=== PATIENT | female | born 1960 | race Caucasian/White ===

== ENCOUNTER → 2022-09-19 16:02 | Outpatient (CLI) | payer OTHER, SELFPAY ==
--- NOTE | ~2022-09-19 | XR_ITS ---
XR hip RT min 2V 09/19/2022 16:17 Indication: Inflammatory arthritis Procedure: 2 views right hip Comparison: No prior studies for comparison. Findings: No fracture, subluxation or dislocation. No significant joint space narrowing. No erosive c hanges. No soft tissue abnormality. No foreign bodies. Impression: 1: No significant bone or joint abnormality. Reviewed, dictated and finalized at location [] Impression: 1: No significant bone or joint abnormality.
== END ==
PROVIDERS: PCP Internal Medicine; Visit Provider Internal Medicine
DX: M06.4 Inflammatory polyarthropathy (principal); M25.551 Pain in right hip
CPT/HCPCS: 73502

== ENCOUNTER 2023-02-24 10:29 | Emergency (ER) | payer OTHER, SELFPAY ==
[2023-02-24 10:40] VITALS: BP 115/80; PULSE 72; RESP 16; TEMP 36.6; O2SAT 100
--- NOTE | 2023-02-24 10:45 | ED.URI ---
HPI - URI/Sore Throat General Chief Complaint: Upper Respiratory Infection Stated Complaint: HEAD/CHEST COLD/SORE THROAT Time Seen by Provider: 02/24/23 10:46 Source: patient and RN notes reviewed Mode of arrival: ambulatory Limitations: no limitations History of Present Illness HPI Narrative: 62-year-old female presented for complaint of sinus congestion and drainage, sore throat, and headache. onset 1 week. Woke this morning and it ?moved to the chest. ? endorses occasional productive cough. Denies shortness of breath, wheezing, nausea vomiting, fevers or chills. She used Sudafed and nasal irrigation. Denies sick contacts. Tested negative for COVID at the onset of symptoms. MD elicited complaint: cough Related Data Home Medications Medication Instructions Recorded Confirmed alprazolam 0.5 mg tablet (Xanax) 0.5 mg PO TID 05/01/22 02/24/23 cholecalciferol (vitamin D3) 50 50 mcg PO DAILY 06/15/22 02/24/23 mcg (2,000 unit) capsule ferrous sulfate 325 mg (65 mg 325 mg PO DAILY 06/15/22 02/24/23 iron) tablet folic acid 400 mcg tablet 0.4 mg PO DAILY 06/15/22 02/24/23 mecobalamin (vitamin B12) 1,000 1,000 mcg PO DAILY 06/15/22 02/24/23 mcg chewable tablet omeprazole 20 mg capsule,delayed 20 mg PO DAILY 06/15/22 02/24/23 release spironolactone 50 mg tablet 50 mg PO DAILY 06/15/22 02/24/23 Allergies Allergy/AdvReac Type Severity Reaction Status Date / Time doxycycline AdvReac Severe edema Uncoded 02/24/23 10:45 Review of Systems Review of Systems: CONSTITUTIONAL: Denies malaise, chills, sweats, fever EYES: Denies visual changes, redness, or discharge ENT: Reports rhinorrhea, congestion, sinus pain, denies otalgia, sore throat CARDIOVASCULAR: Denies chest pain, palpitations, edema RESPIRATORY: Reports cough, post nasal drainage. Denies dyspnea GASTROINTESTINAL: Denies abdominal pain, nausea, vomiting, diarrhea SKIN: Denies rash or itching MUSCULOSKELETAL: Denies myalgia NEUROLOGIC: Reports headache PMFSH Past Medical History Medical History Anxiety Asthma Hyperlipidemia Hypothyroidism (acquired) Palindromic rheumatism Surgical History Surgical History H/O shoulder surgery History of foot surgery bilateral plantar fasciitis and heel spur S/P cervical spinal fusion x2 Family History Family History Father Cancer Diabetes mellitus Mother Diabetes mellitus Heart disease Other Family history of cardiovascular disease Social History Social History Years smoked: 10 Smoking status: Current some day smoker Tobacco type: e-cigarettes/vaping Alcohol intake: current Substance use: never Lack of Transportation: No Lack of Food: Never True Current Housing: I Have Housing Concerned About Future Housing: No Difficulty Paying Gas/Electric Bills: No Difficulty Paying for Meds: No Currently Unemployed: No Education: Don't Know Difficulty w/ Childcare or Family Care: No Living arrangements: with family Occupation/Education: occupation Additional occupation/education comments: [employer] Spiritual care concerns: No Agree to blood products: Yes Exam Narrative: GENERAL: Mildly ill-appearing, nontoxic no acute distress. HEAD: Normocephalic EYES: PERRLA, conjunctivae clear ENT: Mucous membranes moist. Nasal congestion. TM pearly vuong with dull light reflex bilaterally; no tragal tenderness. Oropharynx mildly erythematous without lesions or exudate, no drooling, no hoarseness, no trismus, uvula midline. No tripod positioning, muffled voice, soft palate or pharyngeal wall bulging NECK: Supple. No lymphadenopathy CHEST: Clear to auscultation, breath sounds equal. No wheezing, rhonchi, rales, or stridor. No respiratory
== END 2023-02-24 11:00 | disposition home or self-care (01) ==
PROVIDERS: Emergency Provider Nurse Practitioner Family; PCP Family Medicine
DX: J06.9 Acute upper respiratory infection, unspecified (principal); F17.290 Nicotine dependence, other tobacco product, uncomplicated; J45.909 Unspecified asthma, uncomplicated; E78.5 Hyperlipidemia, unspecified; E03.9 Hypothyroidism, unspecified; M12.30 Palindromic rheumatism, unspecified site; F41.9 Anxiety disorder, unspecified
CPT/HCPCS: 99213; G0463

== ENCOUNTER 2023-12-07 19:45 | Emergency (ER) | payer OTHER, SELFPAY ==
--- NOTE | 2023-12-07 19:49 | ED.BACK ---
HPI - Back Pain/Injury General Chief Complaint: Back Pain/Injury Stated Complaint: Lower back pain Time Seen by Provider: 12/07/23 20:15 Source: patient and RN notes reviewed Mode of arrival: ambulatory Limitations: no limitations History of Present Illness HPI Narrative: 63-year-old female presents concern for right lower back pain radiates to right leg she reports symptoms started this morning. Reports when she was getting out of bed she and stretching she felt a pull in her low back and since then has had pain. Reports walking relieves the pain. Reports sitting for long time or lying down makes the pain worse. She reports she took methocarbamol at home without relief. MD elicited complaint: back pain Related Data Home Medications Medication Instructions Recorded Confirmed cholecalciferol (vitamin D3) 50 50 mcg PO DAILY 06/15/22 08/27/23 mcg (2,000 unit) capsule ferrous sulfate 325 mg (65 mg 325 mg PO DAILY 06/15/22 08/27/23 iron) tablet folic acid 400 mcg tablet 0.4 mg PO DAILY 06/15/22 08/27/23 mecobalamin (vitamin B12) 1,000 1,000 mcg PO DAILY 06/15/22 08/27/23 mcg chewable tablet omeprazole 20 mg capsule,delayed 20 mg PO DAILY 06/15/22 08/27/23 release spironolactone 50 mg tablet 50 mg PO DAILY 06/15/22 08/27/23 alprazolam 0.5 mg tablet (Xanax) 0.5 mg PO DAILY 04/24/23 08/27/23 Allergies Allergy/AdvReac Type Severity Reaction Status Date / Time doxycycline AdvReac Severe edema Uncoded 08/24/23 14:45 Review of Systems Review of Systems: CONSTITUTIONAL: Denies malaise, chills, sweats, or fever. CARDIOVASCULAR: Denies chest pain, palpitations, or edema. RESPIRATORY: Denies cough or dyspnea. GASTROINTESTINAL: Denies abdominal pain, nausea, vomiting, diarrhea, loss of bowel function GENITOURINARY: Denies dysuria, hematuria, frequency, loss of bladder function. SKIN: Denies rash or itching. MUSCULOSKELETAL: Reports right low back pain NEUROLOGIC: Denies numbness, weakness, or headache. All systems reviewed & are unremarkable except as noted in HPI and below PMFSH Past Medical History Medical History Anxiety Asthma Hyperlipidemia Hypothyroidism (acquired) Palindromic rheumatism Surgical History Surgical History H/O shoulder surgery History of foot surgery bilateral plantar fasciitis and heel spur S/P cervical spinal fusion x2 Family History Family History Father Cancer Diabetes mellitus Mother Diabetes mellitus Heart disease Other Family history of cardiovascular disease Social History Social History Years smoked: 10 Smoking status: Current some day smoker Tobacco type: e-cigarettes/vaping Alcohol intake: current Substance use: never Lack of Transportation: No Lack of Food: Never True Current Housing: I Have Housing Concerned About Future Housing: No Difficulty Paying Gas/Electric Bills: No Difficulty Paying for Meds: No Currently Unemployed: No Education: Don't Know Difficulty w/ Childcare or Family Care: No Living arrangements: with family Occupation/Education: occupation Additional occupation/education comments: [employer] Spiritual care concerns: No Agree to blood products: Yes Comments At time of signature, agree with nursing past medical, surgical, social and family history. There is no relevant family history pertinent to the presenting complaint Exam Narrative: GENERAL: Well-appearing, well-nourished, and in no acute distress. HEAD: Normocephalic, atraumatic. EYES: PERRLA and EOMI. NECK: Supple. No lymphadenopathy. CHEST: Clear to auscultation. No respiratory distress. HEART: Regular rate and rhythm. Distal pulses palpable and equal, cap refill <3 seconds ABDOMEN
[2023-12-07 19:54] VITALS: BP 103/67; PULSE 64; RESP 16; TEMP 36.7; O2SAT 100
== END 2023-12-07 20:29 | disposition home or self-care (01) ==
PROVIDERS: Emergency Provider Nurse Practitioner; PCP Family Medicine
DX: M54.50 Low back pain, unspecified (principal); F17.290 Nicotine dependence, other tobacco product, uncomplicated; J45.909 Unspecified asthma, uncomplicated; E78.5 Hyperlipidemia, unspecified; E03.9 Hypothyroidism, unspecified; F41.9 Anxiety disorder, unspecified; M12.30 Palindromic rheumatism, unspecified site
CPT/HCPCS: 99213; G0463

== ENCOUNTER 2024-05-28 00:37 | Day surgery (SDC) | payer OTHER, SELFPAY ==
[2024-05-15 11:39] VITALS: BMI 24.2
--- OUTSIDE RECORDS SUMMARY | 2024-05-28 00:40 | XMS_ITS | Clinical Summary ---
Author Organization [facility] Address [address] [place] [id number] Care Team Providers Care Owner/Photographer Name Role Phone None, Provider MD Primary Care Provider Unavaila ble Allergies Active Allergy Reactions Criticality Noted Date Comments Doxycycline Anaphylaxis High 03/26/2020 Medications spironolactone 100 MG tabletIndicatio ns:for acne 50 mg. Indications: for acne Active rosuvastatin 10 MG tablet rosuvastatin 10 mg tablet TK 1 T PO HS Active levothyroxine 75 MCG tablet levothyroxine 75 mcg tablet TK 1 T PO D Active HYDROcodone-jacqui taminophen 5-325 MG tabletIndicatio ns:uses about once a week Take 1 tablet by mouth every 6 (six) hours as needed. Indications: uses about once a week 0 Active BREO ELLIPTA 100-25 MCG/INH inhaler INHALE 1 PUFF PO QD 0 Active escitalopram 20 MG tablet TK 1 T PO QD IN THE MORNING 0 Active Casanthranol-Do cusate Sodium (LAXATIVE-STOOL SOFTNER OR) Active Cyanocobalamin (VITAMIN B 12 OR) Active Turmeric (QC TUMERIC COMPLEX OR) Active omeprazole 20 MG capsule Take 20 mg by mouth daily. Active medroxyPROGESTE Kings 2.5 MG tablet Take 2.5 mg by mouth daily. Estrogen patch, progesterone first 10 days of month every 3 months Active Na sulfate-K sulfate-Mg sulfate (SUPREP BOWEL PREP KIT) 17.5-3.13-1.6 GM/177ML SolutionIndicat ions:Colon cancer screening,Encou nter for colonoscopy due to history of adenomatous colonic polyps Take 177 mLs by mouth every 12 (twelve) hours. Take as directed by instruction sheet. 354 mL Active hydroxychloroqu ine 200 MG tablet Take 200 mg by mouth 2 (two) times daily. Active Active Problems Problem Noted Date Diagnosed Date Colon cancer screening 03/01/2021 Overview (03/01/2021): Added automatically from request for surgery [id number] Constipation, unspecified 03/29/2020 Overview (03/29/2020): Added automatically from request for surgery [id number] History of colon polyps 03/29/2020 Overview (03/29/2020): Added automatically from request for surgery [id number] Anemia 03/29/2020 Overview (03/29/2020): Added automatically from request for surgery [id number] Family History Medical History Relation Comments Breast Cancer Neg Hx Relation Status Comments Father Mother Social History Tobacco Use Types Packs/Day Years Used Date Smoking Tobacco: Former Smokeless Tobacco: Never Alcohol Use Standard Drinks/Week Comments Not Currently 0 (1 standard drink = 0.6 oz pur e alcohol) PHQ-2 Answer Date Recorded PHQ-2 Score - If the patient scores above 3, please move on to questions 3-9 0 02/24/2021 Comments No Sex and Gender Information Value Date Recorded Sex Assigned at Not on file Legal Sex Female 7:32 PM CDT Gender Identity Not on file Sexual Orientation Not on file Last Filed Vital Signs Vital Sign Reading Time Taken Comments Blood Pressure 121/74 04/06/2021 9:49 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 Pulse 60 04/06/2021 9:49 AM SENIOR 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 Temperature 36.1 C (96.9 F) 04/06/2021 9:20 AM SENIOR 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 Respiratory Rate 20 04/06/2021 9:49 AM SENIOR 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 Oxygen Saturation 98% 04/06/2021 9:49 AM SENIOR 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 Inhaled Oxygen Concentration - - Weight 72.6 kg (160 lb) 03/22/2021 1:22 PM SENIOR 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 Height 167.6 cm (5' 6 ) 03/22/2021 1:22 PM SENIOR 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 Body Mass Index 25.82 03/22/2021 1:22 PM SENIOR 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 Plan of Treatment Health Maintenance Due Date Last Done Comments Cervical Cancer Screening Pa p Smear (Age 30 to 64) Every 3 Years 1959 Annual Physical 11/07/1962 Hepatitis C 11/07/1977 DTaP, Tdap and Td Vaccines ( 1 - Tdap) 11/07/1978 Cervical Cancer Screening Pa p with HPV Testing (Age 30 to 64) Every 5 Years 11/07/1989 Cervical Cancer Screening wi th HPV 11/07/1989 Zoster Vaccines (2 of 2) 01/08/2021 11/13/2020 COVID-19 Vaccine (3 - 2023-2 5 season) 2023 06/21/2020, 05/29/2020 Influenza Adult (#1) 2024 Mammogram Screening 02/07/2024 02/06/2022 Colorectal Cancer Screening Colonoscopy (10 Years) 04/06/2031 04/06/2021, 04/07/2020, 11/06/2005 RSV Immunization or 60+ Years (1 - 1-dose 75+ series) 11/07/2034 Meningococcal B Vaccine Aged Out No l onger eligible based on patient's age to complete this topic Meningococcal Vaccine Aged Out No oksana blaise eligible based on patient's age to complete this topic Pneumococcal Vaccine: Pediatrics (0 to 5 Years) and At-Risk Patients (6 to 64 Years) Aged Out No longer eligible b ased on patient's age to complete this topic RSV Immunizations Under 20 Months Aged Out No longer eligible b ased on patient's age to complete this topic Procedures Procedure Name Priority Date/Time Associated Diagnosis Comments MG SCREENING W SIMON SANJU DIGI Routine 02/06/2022 3:37 PM CDT Encounter for screening mammogram for malignant neoplasm of breast COLONOSCOPY GENERIC (SCAN ORDER) 11/06/2005 from Last 3 Months or Most Recently Relevant to Health Maintenance Results * MG SCREENING W SIMON SANJU DIGI (02/06/2022 3:37 PM CDT) Anatomical Region Laterality Modality Breast Bilateral Mammography 02/06/2022 4:42 PM CDT Impressions 02/06/2022 4:52 PM CDT IMPRESSION: 1. No mammographic evidence of malignancy. 2. Assessment: ACR BI-RADS 2 - BENIGN FINDING(S) 3 .Routine Screening Bilateral MQSA BI-RADS Categories: Category 0 - needs additional imaging evaluation. Category 1 - negative. Category 2 - benign findings. Category 3 - probably benign findings, but short interval follow-up is recommended. Category 4 - suspicious abnormality and biopsy should be considered though the lesion may well be benign. Category 5 - highly suggestive of malignancy and appropriate action should be taken. Category 6 - known biopsy-proven malignancy A) A negative report should not delay a biopsy if a dominant or clinically suspicious mass is present. B) Adenosis and dense breasts may obscure an underlying neoplasm. C) Study interpreted with computer aided detection. Ordered By: KAITY HERNANDEZ Interpreted By: Trip Seth, 02/06/2022 4:42 PM Narrative 02/06/2022 4:52 PM CDT IMAGING STUDIES: Bilateral screening mammograms with computer-aided detection with 2-D and 3-D imaging. Tomosynthesis. DATE: 02/06/2022 2:41 PM HISTORY: screening . COMPARISON: 09/07/2008. 01/09/2013. TISSUE TYPE: The breast tissue is extremely dense, which lowers the sensitivity of mammography. FINDINGS: 1. Bilateral screening mammograms with computer detection with 2-D and 3-D imaging. Tomosynthesis. Dense fibroglandular tissue pattern is present. This does limit sensitivity of mammography. Benign nodularity. Benign calcifications. 2. No malignant microcalfcifications, new dominant masses, or architectural distortion. 3. No skin thickening or nipple retraction. Axillary regions are within normal limits. Kaity Hernandez MD MAMMO Final Resul t * COLONOSCOPY GENERIC (11/06/2005) 11/06/2005 Narrative 11/06/2005 Ordered by an unspecified provider. us Documents Scanned SCANNING Final Result from Last 3 Months or Most Recently Relevant to Health Maintenance Insurance [employer] Care Teams Owner/Photographer Relationship Specialty Start Date End Date None, Provider, PCP - General UNKNOWN PHYSICIAN SPECIALTY 02/04/24
--- OUTSIDE RECORDS SUMMARY | 2024-05-28 00:40 | XMS_ITS | Patient Health Summary ---
Author Organization [facility] Address [address] [place] [address] Care Team Providers Care Teletypewriter Operator Name Role Phone Akash Soares MD Primary Care Provider [phone] Note from [facility],non-owned Affiliates and Associated Physician Practices is amultiple site organization consisting of ambulatory clinics and hospital sitesin [place], [place], [place] and [place]. This disclosure is being madepursuant to the Care Everywhere program and may not contain all information available regarding this patient. Last updated 17.[facility] Allergies * Diclofenac Epolamine(Rash) -Medium Criticality * Doxycycline(Anaphylaxis,Nausea and/or Vomiting,Rash,Swelling) -High Criticality * Molds & Smuts(Unknown) Medications * Be aware that medications may not be up to date on this document. Alwaysverify current medications with the patient. * ALPRAZolam (Xanax) 0.25 MG tablet(Started 08/31/2020) alprazolam 0.25 mg tablet TAKE 1 TABLET BY MOUTH THREE TIMES DAILY NEEDED * escitalopram (Lexapro) 20 MG tablet(Started 09/13/2020) * Lyllana 0.025 MG/24HR patch(Started 12/23/2021) APPLY 1 PATCH TOPICALLY TO THE SKIN 2 TIMES A WEEK * Ferrous Sulfate (Iron) 90 (18 Fe) MG * omeprazole (PriLOSEC) 20 MG capsule Take 1 (one) capsule by mouth once daily * rosuvastatin (Crestor) 10 MG tablet(Started 01/25/2022) Take 1 (one) tablet by mouth at bedtime * HYDROcodone-acetaminophen ([place]) 5-325 MG tablet(Started 11/30/2021) TAKE 1 TABLET BY MOUTH EVERY 6 TO 8 HOURS NEEDED * albuterol HFA (Proventil; Ventolin; Proair) 108 (90 Base) MCG/ACT inhaler * Cyanocobalamin (VITAMIN B-12 PO) * VITAMIN D PO * methotrexate 2.5 MG tablet(Started 05/09/2022) * folic acid (Folvite) 1 MG tablet(Started 05/09/2022) * HYDROXYCHLOROQUINE SULFATE PO Take by mouth once daily * tretinoin (Retin-A) 0.1 % cream(Started 01/02/2023) tretinoin 0.1 % topical cream APPLY to forearms AT AT BEDTIME 5 refills by 01/02/2024 * valACYclovir (Valtrex) 1 GM tablet(Started 04/24/2023) Take 2 (two) tablets by mouth 2 times daily * budesonide-formoterol (Symbicort) 80-4.5 MCG/ACT inhaler(Started 07/25/2023) INHALE 2 PUFFS BY MOUTH EVERY 12 HOURS * hydroxychloroquine (Plaquenil) 200 MG tablet(Started 08/02/2023) * HVAC TECH Thyroid 30 MG tablet(Started 06/14/2023) Take 1 (one) tablet by mouth every morning * triamcinolone acetonide (Kenalog) 0.1 % cream(Started 10/07/2022) APPLY TOPICALLY TO THE AFFECTED AREA 1 TO 2 TIMES DAILY NEEDED. AVOID FACE AND GROIN * azelaic acid (Finacea) 15 % gel(Started 08/07/2023) Apply to affected area on the face daily. 30 days supply. 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 Anemia 03/29/2020 History of colon polyps 03/29/2020 Recurrent oral ulcers 05/05/2014 Arthralgia 03/17/2014 Myalgia and myositis 03/17/2014 Malaise 03/17/2014 Screening-pulmonary TB 03/17/2014 Tick bite 03/17/2014 Pain of foot 07/01/2013 Resolved Problems Problem Noted Date Diagnosed Date Resolved Date Constipation 03/17/2014 06/20/2022 Social History Tobacco Use Types Packs/Day Years Used Date Smoking Tobacco: Former Cigarettes Q uit: 2010 Passive Smoke Exposure: Never Smokeless Tobacco: Never Tobacco Cessation:Counseling Given: Not Answered PHQ-2 Answer Date Recorded PHQ2 TOTAL SCORE 0 08/10/2022 Sex and Gender Information Value Date Recorded Sex Assigned at Not on file Gender Identity Not on file Sexual Orientation Not on file Last Filed Vital Signs Vital Sign Reading Time Taken Comments Blood Pressure 123/82 12/07/2022 2:04 PM CDT Pulse 77 12/07/2022 2:04 PM CDT Temperature 37 C (98.6 F) 12/07/2022 2:04 PM CDT Respiratory Rate 18 12/07/2022 2:04 PM CDT Oxygen Saturation 99% 12/07/2022 2:04 PM CDT Inhaled Oxygen Concentration - - Weight 73.5 kg (162 lb) 12/07/2022 2:04 PM CDT Height 167.6 cm (5' 6 ) 12/07/2022 2:04 PM CDT Body Mass Index 26.15 12/07/2022 2:04 PM CDT Procedures * PT PTT PANEL(Performed 08/10/2022) Performed for Easy bruising * CBC W AUTO DIFFERENTIAL ([facility])(Performed 08/10/2022) Performed for Easy bruising * PORPHYRINS TOTAL PLASMA(Performed 06/09/2022) * PORPHYRINS URINE TIMED FRACTIONATION(Performed 06/09/2022) Performed for Ecchymoses, spontaneous, Milia * COMPLEMENT C4(Performed 05/09/2022) Performed for Easy bruising, Chronic inflammatory arthritis, Mixed hyperlipidemia, Anxiety with depression * COMPREHENSIVE METABOLIC PANEL(Performed 05/09/2022) Performed for Easy bruising, Chronic inflammatory arthritis, Mixed hyperlipidemia, Anxiety with depression * PT PTT PANEL(Performed 05/09/2022) Performed for Easy bruising * CBC W AUTO DIFFERENTIAL ([facility])(Performed 05/09/2022) Performed for Easy bruising * VITAMIN C(Performed 02/03/2022) Performed for Easy bruising, Chronic inflammatory arthritis, Mixed hyperlipidemia * VITAMIN K1(Performed 02/03/2022) Performed for Easy bruising, Chronic inflammatory arthritis, Mixed hyperlipidemia * THROMBIN TIME(Performed 02/02/2022) Performed for Easy bruising, Chronic inflammatory arthritis, Mixed hyperlipidemia * VON WILLEBRAND EVALUATION PANEL(Performed 02/02/2022) Performed for Easy bruising, Chronic inflammatory arthritis, Mixed hyperlipidemia * HEMATOPATHOLOGY CONSULT(Performed 02/02/2022) Performed for Easy bruising, Chronic inflammatory arthritis * REF LAB-SPECIMEN STATUS REPORT(Performed 02/02/2022) * COAGULATION STUDIES INTERPRETATION(Performed 02/02/2022) Performed for Easy bruising, Chronic inflammatory arthritis, Mixed hyperlipidemia * HEPATITIS SCREEN ACUTE ([facility])(Performed 02/02/2022) Performed for Easy bruising, Chronic inflammatory arthritis * VITAMIN B12 FOLATE PANEL(Performed 02/02/2022) Performed for Easy bruising, Chronic inflammatory arthritis * CRYOGLOBULIN SCREEN W/ REFLEX(Performed 02/02/2022) Performed for Easy bruising, Chronic inflammatory arthritis * IMMUNOGLOBULINS IGG/IGM/IGA PANEL(Performed 02/02/2022) Performed for Easy bruising, Chronic inflammatory arthritis * ANCA VASCULITIS PANEL(Performed 02/02/2022) Performed for Easy bruising, Chronic inflammatory arthritis * MARINA BLOOD SCREEN W/REFLEX TITER(Performed 02/02/2022) Performed for Easy bruising, Chronic inflammatory arthritis * RHEUMATOID FACTOR BLOOD QUANTITATIVE(Performed 02/02/2022) Performed for Easy bruising, Chronic inflammatory arthritis * COPPER BLOOD(Performed 02/02/2022) Performed for Easy bruising, Chronic inflammatory arthritis * C-REACTIVE PROTEIN(Performed 02/02/2022) Performed for Easy bruising, Chronic inflammatory arthritis * COMPREHENSIVE METABOLIC PANEL(Performed 02/02/2022) Performed for Easy bruising, Chronic inflammatory arthritis * TSH(Performed 02/02/2022) Performed for Easy bruising, Chronic inflammatory arthritis * COAGULATION PANEL W D-DIMER(Performed 02/02/2022) Performed for Easy bruising, Chronic inflammatory arthritis * COMPLEMENT C3(Performed 02/02/2022) Performed for Easy bruising, Chronic inflammatory arthritis * ERYTHROCYTE SEDIMENTATION RATE(Performed 02/02/2022) Performed for Easy bruising, Chronic inflammatory arthritis * PLATELET FUNCTION SCREEN PANEL(Performed 02/02/2022) Performed for Easy bruising, Chronic inflammatory arthritis * CBC W AUTO DIFFERENTIAL ([facility])(Performed 02/02/2022) Performed for Easy bruising, Chronic inflammatory arthritis * URINALYSIS MICROSCOPIC ONLY REFLEXED(Performed 03/17/2014) * EHRLICHIA CHAFFEENSIS AB IGG/IGM PANEL(Performed 03/17/2014) * RHEUMATOID FACTOR BLOOD QUANTITATIVE(Performed 03/17/2014) * CYCLIC CITRULLINATED PEPTIDE([facility]) AB IGG(Performed 03/17/2014) * PM/SCL-100 ANTIBODY IGG(Performed 03/17/2014) * COMPLEMENT TOTAL(Performed 03/17/2014) * COMPLEMENT C4(Performed 03/17/2014) * COMPLEMENT C3(Performed 03/17/2014) * SS-A/SS-B (SJOGREN'S) ANTIBODY PANEL(Performed 03/17/2014) * SACCHAROMYCES ANTIBODY (ASCA) IGG/IGA PANEL(Performed 03/17/2014) * CUSTOMER RELATIONS SPECIALIST ANTIBODY(Performed 03/17/2014) * MPO + PR3 W/ REFLEX ANCA(Performed 03/17/2014) * MARINA BLOOD SCREEN W/REFLEX TITER(Performed 03/17/2014) * LYME DISEASE IGG/IGM PANEL WB/IMMUNOBLOT(Performed 03/17/2014) * HEPATITIS SCREEN ACUTE(Performed 03/17/2014) * LDH BLOOD(Performed 03/17/2014) * QUANTIFERON TB-GOLD(Performed 03/17/2014) * ERYTHROCYTE SEDIMENTATION RATE(Performed 03/17/2014) * TSH HI LOW REFLEX FREE T4(Performed 03/17/2014) * URINALYSIS W/MICROSCOPIC REFLEX TO CULTURE(Performed 03/17/2014) * VITAMIN D 25-HYDROXY(Performed 03/17/2014) * CK BLOOD(Performed 03/17/2014) * C-REACTIVE PROTEIN(Performed 03/17/2014) * COMPREHENSIVE METABOLIC PANEL(Performed 03/17/2014) * CELIAC DISEASE COMPREHENSIVE(Performed 03/17/2014) * CBC W AUTO DIFFERENTIAL(Performed 03/17/2014) * ALDOLASE(Performed 03/17/2014) * QUANTIFERON TB-GOLD (CLIENT INCUBATED)(Performed 03/17/2014) * XR PELVIS W BILAT HIP 2VW(Performed 03/17/2014) * XR KNEE LEFT 3VW(Performed 03/17/2014) * XR KNEE RIGHT 3VW(Performed 03/17/2014) Results * PT PTT PANEL (08/10/2022 1:39 PM CDT) Only the most recent of2 resultswithin the time period is included. INR 0.9 0.9 - 1.2 [facility] ACCOUNT BILL Comment: Reference interval is for non-anticoagulated patients. . Suggested INR therapeutic range for Vitamin K antagonist therapy: Standard Dose (moderate intensity therapeutic range): 2.0 - 3.0 Higher intensity therapeutic range 2.5 - 3.5 PT 9.9 9.1 - 12.0 sec [facility] ACCOUNT BILL PTT 27 24 - 33 sec [facility] ACCOUNT BILL Comment: This test has not been validated for monitoring unfractionated heparin therapy. aPTT-based therapeutic ranges for unfractionated heparin therapy have not been established. For general guidelines on Heparin monitoring, refer to the [facility] Directory of Services. Blood BLOOD SPECIMEN / Unknown 08/10/2022 1:39 PM CDT 08/10/2022 Narrative Resulting Agency Comment Lab Testing performed at: [facility] [address] [facility] [phone] Janusz Bravo MD LAB - COAGULATION OR DERABLES [facility] ACCOUNT BILL [address] [place] [address] * (ABNORMAL) CBC W AUTO DIFFERENTIAL ([facility]) (08/10/2022 12:45 PM CDT) Only the most recent of3 resultswithin the time period is included. Pathologist [facility] WBC 12.1(H) 4.4 - 10.7 x10E9/L 08/10/2022 12:50 PM CDT [facility] Neutrophils % 80.3(H) 44.0 - 73.0 % 08/10/2022 12:50 PM CDT [facility] Lymphocytes % 11.0(L) 20.0 - 43.0 % 08/10/2022 12:50 PM CDT [facility] Monocytes % 7.3 5.0 - 13.0 % 08/10/2022 12:50 PM CDT [facility] Eosinophils % 0.2 0.0 - 6.0 % 08/10/2022 12:50 PM CDT [facility] Basophils % 0.6 0.0 - 2.0 % 08/10/2022 12:50 PM CDT [facility] Immature Granulocytes 0.6 <=1 % 08/10/2022 12:50 PM CDT [facility] Neutrophil Absolute 9.72(H) 2.01 - 7.14 x10E9/L 08/10/2022 12:50 PM CDT [facility] Lymphocytes Absolute 1.33 1.07 - 3.94 x10E9/L 08/10/2022 12:50 PM CDT [facility] Monocytes Absolute 0.88 0.26 - 1.07 x10E9/L 08/10/2022 12:50 PM CDT [facility] Eosinophils Absolute 0.02 0 - 0.47 x10E9/L 08/10/2022 12:50 PM CDT [facility] Basophils Absolute 0.07 0 - 0.08 x10E9/L 08/10/2022 12:50 PM CDT [facility] RBC 4.02 3.80 - 5.20 x10E12/L 08/10/2022 12:50 PM CDT [facility] Hemoglobin 13.2 12.0 - 15.6 gm/dL 08/10/2022 12:50 PM CDT [facility] Hematocrit 40.2 35.9 - 45.5 % 08/10/2022 12:50 PM CDT [facility] MCV 100.0(H) 80.7 - 98.3 fl 08/10/2022 12:50 PM CDT [facility] MCH 32.8 26.7 - 34.0 pg 08/10/2022 12:50 PM CDT [facility] MCHC 32.8 30.8 - 35.9 gm/dL 08/10/2022 12:50 PM CDT [facility] RDW-CV 14.6 12.1 - 14.9 % 08/10/2022 12:50 PM CDT [facility] Platelet Count 283 153 - 416 x10E9/L 08/10/2022 12:50 PM CDT [facility] MPV 9.1(L) 9.4 - 12.9 fl 08/10/2022 12:50 PM CDT [facility] NRBC 0.0 /100 WBC 08/10/2022 12:50 PM CDT [facility] Blood BLOOD SPECIMEN / Unknown 08/10/2022 12:45 PM CDT 08/10/2022 12:45 PM CDT Janusz Bravo MD LAB - HEMATOLOGY ORD ERABLES Performing Organization Address City/[facility]/ZIP Co de Phone Number [facility] [address] * PORPHYRINS TOTAL PLASMA (06/09/2022 7:54 AM MANUFACTURING ENGINEERING DIRECTOR) [facility] Porphyrins Total <0.1 0.0 - 1.0 ug/dL [facility] INSURANCE BILL Comment: Reference Range 0.0 - 1.0 ug/dL = normal > 1.0 ug/dL = elevated The performance characteristics of the listed assay was validated by [facility]. The [place] FDA has not approved or cleared this test. The results of this assay can be used for clinical diagnosis without FDA approval. [facility] is a CLIA certified, CAP accredited laboratory for performing high complexity assays such as this one. Testing Performed at: [facility] [place] [address] 06/09/2022 7:54 AM MANUFACTURING ENGINEERING DIRECTOR 06/09/2022 Narrative Resulting Agency Comment Lab Testing performed at: [facility] [phone] Aura Lo MD LAB - CHEMISTRY OR DERABLES [facility] INSURANCE BILL [address] [place] [address] * PORPHYRINS URINE TIMED FRACTIONATION (06/09/2022 7:54 AM MANUFACTURING ENGINEERING DIRECTOR) Uroporphyrin 8 Undefined ug/L [facility] INSURANCE BILL Uroporphyrin 24 Hour Urine 6 0 - 24 ug/24 hr [facility] INSURANCE BILL Heptacarboxyl (7-CP) 4 Undefined ug/L [facility] INSURANCE BILL Heptacarboxyl (7-CP) Timed 3 0 - 4 ug/24 hr [facility] INSURANCE BILL Hexacarb (6-CP) <1 Undefined ug/L [facility] INSURANCE BILL Hexacarb(6-CP) 24 Hour 0 0 - 1 ug/24 hr [facility] INSURANCE BILL Pentacarboxyl (5-CP) <1 Undefined ug/L [facility] INSURANCE BILL Pentacarb(5-CP) 24 Hour 0 0 - 4 ug/24 hr [facility] INSURANCE BILL Coproporphyrin (CP) 9 Undefined ug/L [facility] INSURANCE BILL Coproporph (CP) I ug/24 Hour Urine 7 0 - 24 ug/24 hr [facility] INSURANCE BILL Coproporphyrin (CP) III ug/L 2 Undefined ug/L [facility] INSURANCE BILL Copropor CPIII ug/24 Hour Urine 2 0 - 74 ug/24 hr [facility] INSURANCE BILL Urine URINE SPECIMEN COLLECTION, 24 HOURS / Unknown 06/09/2022 7:54 AM MANUFACTURING ENGINEERING DIRECTOR 06/09/2022 Narrative Resulting Agency Comment Lab Testing performed at: [address] [phone] Aura Lo MD LAB - URINE CHEMIS TRY ORDERABLES [facility] INSURANCE BILL [address] [place] [address] * COMPLEMENT C4 (05/09/2022 2:26 PM MANUFACTURING ENGINEERING DIRECTOR) Only the most recent of2 resultswithin the time period is included. Complement C4 31 14 - 44 mg/dL [facility] ACCOUNT BILL Blood BLOOD SPECIMEN / Unknown 05/09/2022 2:26 PM MANUFACTURING ENGINEERING DIRECTOR 05/09/2022 Narrative Resulting Agency Comment Lab Testing performed at: [employer] [address] [place] [phone] Janusz Bravo MD LAB - SEROLOGY ORDER JAMIE [facility] ACCOUNT BILL [address] [place] [address] * (ABNORMAL) COMPREHENSIVE METABOLIC PANEL (05/09/2022 2:26 PM MANUFACTURING ENGINEERING DIRECTOR) Only the most recent of3 resultswithin the time period is included. Glucose 83 70 - 105 mg/dL [facility] ACCOUNT BILL BUN 14 9.8 - 20.1 mg/dL [facility] ACCOUNT BILL Creatinine 0.94 0.57 - 1.11 mg/dL [facility] ACCOUNT BILL eGFR by CKD-EPI 69(L) >=90 mL/min/1.7 3 m2 [facility] ACCOUNT BILL Sodium 141 136 - 145 mmol/L [facility] ACCOUNT BILL Potassium 4.3 3.5 - 5.1 mmol/L [facility] ACCOUNT BILL Chloride 107 98 - 107 mmol/L [facility] ACCOUNT BILL CO2 24 23 - 31 mmol/L [facility] ACCOUNT BILL Calcium 9.2 8.4 - 10.4 mg/dL [facility] ACCOUNT BILL Protein Total 6.3(L) 6.4 - 8.3 gm/dL [facility] ACCOUNT BILL Albumin 4.3 3.2 - 4.6 gm/dL [facility] ACCOUNT BILL Bilirubin Total 0.5 0.2 - 1.2 mg/dL [facility] ACCOUNT BILL Alkaline Phosphatase 84 40 - 150 U/L [facility] ACCOUNT BILL AST 28 5 - 34 U/L [facility] ACCOUNT BILL ALT 40 0 - 61 U/L [facility] ACCOUNT BILL Blood BLOOD SPECIMEN / Unknown 05/09/2022 2:26 PM MANUFACTURING ENGINEERING DIRECTOR 05/09/2022 Narrative Resulting Agency Comment Lab Testing performed at: [facility] [address] [facility] [phone] Janusz Bravo MD LAB - CHEMISTRY ALBA MARISCAL [facility] ACCOUNT BILL [address] [place] [address] * VITAMIN K1 (02/03/2022 7:58 AM CDT) Vitamin K1 0.28 0.10 - 2.20 ng/mL [facility] ACCOUNT BILL Comment:FASTING Blood BLOOD SPECIMEN / Unknown 02/03/2022 7:58 AM CDT 02/03/2022 Narrative [facility] ACCOUNT BILL - 02/09/2022 6:09 AM CDT Test(s) [id number] K1 was developed and its performance characteristics determined by [facility]. It has not been cleared or approved by the Food and Drug Administration. Resulting Agency Comment Lab Testing performed at: [facility] [address] [phone] Janusz Bravo MD LAB - CHEMISTRY ALBA MARISCAL Performing Organization Address [facility] de Phone Number [facility] ACCOUNT BILL [address] [place] [address] * VITAMIN C (02/03/2022 7:58 AM CDT) Vitamin C 0.5 0.4 - 2.0 mg/dL [facility] ACCOUNT BILL Comment: Vitamin C deficiency is generally defined as plasma or serum concentrations less than 0.2 mg/dL and levels between 0.2 and 0.4 mg/dL are considered low. FASTING Blood BLOOD SPECIMEN / Unknown 02/03/2022 7:58 AM CDT 02/03/2022 Narrative [facility] ACCOUNT BILL - 02/08/2022 8:12 AM CDT Test(s) [id number] C was developed and its performance characteristics determined by [facility]. It has not been cleared or approved by the Food and Drug Administration. Resulting Agency Comment Lab Testing performed at: [facility] [address] [phone] Janusz Bravo MD LAB - CHEMISTRY ALBA MARISCAL Performing Organization Address City/[facility] Co de Phone Number [facility] ACCOUNT BILL [address] [place] [address] * VON WILLEBRAND EVALUATION PANEL (02/02/2022 4:05 PM CDT) Factor VIII Activity 103 56 - 140 % [facility] ACCOUNT BILL von Willebrand Factor Antigen 200 50 - 200 % [facility] ACCOUNT BILL Comment: VWF may elevate in normal , in samples drawn from patients (particularly children) who are visibly stressed at the time of phlebotomy, as acute phase reactants, or in response to certain drug therapies such as DDAVP. These and other situations may increase levels compared to baseline values. For these reasons, it may be necessary to repeat testing to make a diagnosis of VWD. von Willebrand Factor Activity 105 50 - 200 % [facility] ACCOUNT BILL Blood BLOOD SPECIMEN / Unknown 02/02/2022 4:05 PM CDT 02/02/2022 Narrative [facility] ACCOUNT BILL - 02/06/2022 1:08 PM CDT Test(s) [id number] Willebrand Factor (vWF) Ag was developed and its performance characteristics determined by [facility]. It has not been cleared or approved by the Food and Drug Administration. Resulting Agency Comment Lab Testing performed at: [address] [phone] Janusz Bravo MD LAB - COAGULATION OR DERABLES Performing Organization Address [facility] de Phone Number [facility] ACCOUNT BILL [address] [place] [address] * THROMBIN TIME (02/02/2022 4:05 PM CDT) Thrombin Time 17.7 0.0 - 23.0 sec [facility] ACCOUNT BILL Blood BLOOD SPECIMEN / Unknown 02/02/2022 4:05 PM CDT 02/02/2022 Narrative [facility] ACCOUNT BILL - 02/06/2022 7:07 AM CDT Test(s) [id number]-xzp Willebrand Factor (vWF) Ag was developed and its performance characteristics determined by [facility]. It has not been cleared or approved by the Food and Drug Administration. Resulting Agency Comment Lab Testing performed at: [address] [phone] Janusz Bravo MD LAB - COAGULATION OR DERABLES Performing Organization Address [facility] Co de Phone Number [facility] ACCOUNT BILL [address] [place] [address] * HEPATITIS SCREEN ACUTE ([facility]) (02/02/2022 4:04 PM CDT) Hepatitis A Virus Antibody IgM Non Reactive Non Reactive [facility] ACCOUNT BILL Hepatitis B Virus Surface Antigen Non Reactive Non Reactive [facility] ACCOUNT BILL Hepatitis B Core Virus Antibody IgM Non Reactive Non Reactive [facility] ACCOUNT BILL Hepatitis C Antibody Non Reactive Non Reactive [facility] ACCOUNT BILL Comment: Non Reactive - Antibodies to Hepatitis C virus (HCV) were no t detected, result does not exclude early acute HCV infection. Blood BLOOD SPECIMEN / Unknown 02/02/2022 4:04 PM CDT 02/02/2022 Narrative Resulting Agency Comment Lab Testing performed at: [address] [phone] Janusz Bravo MD LAB - CHEMISTRY ALBA MARISCAL [facility] ACCOUNT BILL [address] [place] [address] * COAGULATION STUDIES INTERPRETATION (02/02/2022 4:04 PM CDT) Interpretation Note [facility] ACCOUNT BILL Comment: COAGULATION: VON WILLEBRAND FACTOR ASSESSMENT CURRENT RESULTS ASSESSMENT The VWF:Ag is normal. The VWF:RCo is normal. The FVIII is normal. VON WILLEBRAND FACTOR ASSESSMENT CURRENT RESULTS INTERPRETATION - These results are not consistent with a diagnosis of VWD according to the current NHLBI guideline. VON WILLEBRAND FACTOR ASSESSMENT - Results may be falsely elevated and possibly falsely normal as VWF and FVIII may increase in samples drawn from patients (particularly children) who are visibly stressed at the time of phlebotomy, as acute phase reactants, or in response to certain drug therapies such as desmopressin. Repeat testing may be necessary before excluding a diagnosis of VWD especially if the clinical suspicion is high for an underlying bleeding disorder. The setting for phlebotomy should be as calm as possible and patients should be encouraged to sit quietly prior to the blood draw. VON WILLEBRAND FACTOR ASSESSMENT DEFINITIONS - VWD - von Willebrand disease; VWF - von Willebrand factor; VWF:Ag - VWF antigen; VWF:RCo - VWF ristocetin cofactor activity; FVIII - factor VIII activity. FOREPART REDUCER: For questions regarding panel interpretation, please contact Malcolm Waite M.D. at [facility] at . DISCLAIMER These assessments and interpretations are provided as a convenience in support of the physician-patient relationship and are not intended to replace the physician's clinical judgment. They are derived from national guidelines in addition to other evidence and expert opinion. The clinician should consider this information within the context of clinical opinion and the individual patient. SEE GUIDANCE FOR VON WILLEBRAND FACTOR ASSESSMENT: (1) The National Heart, Lung and Blood [place]. The Diagnosis, Evaluation and Management of von Willebrand Disease. [place], MD: National Institutes of Health Publication 08-5832. 2007. Available at http://www.nhlbi.nih.gov/guidelines/vwd/. (2) Del WL et al. Am J Hematol. 2009; 84(6):366-370. (3) Dayana Wood et al. Haemophilia. 2004;10(3):199-217. (4) Tj TORRES et al. Haemophilia. 2004; 10(3):218-231. 02/02/2022 4:04 PM CDT 02/02/2022 Narrative [facility] ACCOUNT BILL - 02/06/2022 1:08 PM CDT Test(s) [id number]-[id number] Willebrand Factor (vWF) Ag was developed and its performance characteristics determined by [facility]. It has not been cleared or approved by the Food and Drug Administration. Resulting Agency Comment Lab Testing performed at: [facility] [address] [place] [address] [place] [phone] Janusz Bravo MD LAB - COAGULATION OR DERABLES [facility] ACCOUNT BILL [address] [place] [address] * (ABNORMAL) HEMATOPATHOLOGY CONSULT (02/02/2022 4:04 PM CDT) WBC Morph [facility] ACCOUNT BILL Comment: No morphologic abnormality was detected on the Roberts stained smear. RBC Morphology [facility] ACCOUNT BILL Comment:RBC morphology is no rmal. Platelets [facility] ACCOUNT BILL Comment:Platelet morphology appears normal. Comments/Recomme ndations [facility] ACCOUNT BILL Pathologist [facility] ACCOUNT BILL Comment: . Reviewed by: Jamie Watts MD, Pathologist WBC 6.5 3.4 - 10.8 x10E3/uL [facility] ACCOUNT BILL RBC 4.85 3.77 - 5.28 x10E6/uL [facility] ACCOUNT BILL Hemoglobin 14.8 11.1 - 15.9 g/dL [facility] ACCOUNT BILL Hematocrit 45.4 34.0 - 46.6 % [facility] ACCOUNT BILL MCV 94 79 - 97 fL [facility] ACCOUNT BILL MCH 30.5 26.6 - 33.0 pg [facility] ACCOUNT BILL MCHC 32.6 31.5 - 35.7 g/dL [facility] ACCOUNT BILL RDW 11.5(L) 11.7 - 15.4 % [facility] ACCOUNT BILL Platelet Count 364 150 - 450 x10E3/uL [facility] ACCOUNT BILL Granulocytes % 67 Not Estab. % [facility] ACCOUNT BILL Lymphocytes % 15 Not Estab. % [facility] ACCOUNT BILL Monocytes % 12 Not Estab. % [facility] ACCOUNT BILL Eosinophils % 5 Not Estab. % [facility] ACCOUNT BILL Basophils % 1 Not Estab. % [facility] ACCOUNT BILL Immature Cells NOT AVAILABLE [facility] ACC[facility] Comment:Result cannot be obt ained for this observation. Granulocytes Absolute 4.3 1.4 - 7.0 x10E3/uL [facility] ACCOUNT BILL Lymphocytes Absolute 1.0 0.7 - 3.1 x10E3/uL [facility] ACCOUNT BILL Monocytes Absolute 0.8 0.1 - 0.9 x10E3/uL [facility] ACCOUNT BILL Eosinophils Absolute 0.3 0.0 - 0.4 x10E3/uL [facility] ACCOUNT BILL Basophils Absolute 0.1 0.0 - 0.2 x10E3/uL [facility] ACCOUNT BILL Immature Granulocytes 0 Not Estab. % [facility] ACCOUNT BILL Immature Granulocytes Absolute 0.0 0.0 - 0.1 x10E3/uL [facility] ACCOUNT BILL nRBC NOT AVAILABLE [facility] ACCOUNT BILL Comment:Result cannot be obt ained for this observation. Comment Hematology NOT AVAILABLE [facility] ACCOUNT BILL Comment:Result cannot be obt ained for this observation. Blood BLOOD SPECIMEN / Unknown 02/02/2022 4:04 PM CDT 02/02/2022 Narrative Resulting Agency Comment Lab Testing performed at: [facility] [address] [phone] Janusz Bravo MD LAB - PATHOLOGY/CYTO LOGY ORDERABLES [facility] ACCOUNT BILL [address] [place] [address] * CRYOGLOBULIN SCREEN W/ REFLEX (02/02/2022 4:04 PM CDT) Cryoglobulin Qualitative None detected [facility] ACCOUNT BILL Comment: None Detected at 72 hours This test was developed and its performance characteristics determined by [facility]. It has not been cleared or approved by the Food and Drug Administration. Blood BLOOD SPECIMEN / Unknown 02/02/2022 4:04 PM CDT 02/02/2022 Narrative Resulting Agency Comment Lab Testing performed at: [facility] [address] [facility] [place] [phone] Janusz Bravo MD LAB - CHEMISTRY ALBA MARISCAL Performing Organization Address City/[facility]/ZIP Co de Phone Number [facility] ACCOUNT BILL [address] [place] [address] * REF LAB-SPECIMEN STATUS REPORT (02/02/2022 4:04 PM CDT) Specimen Status Report NOT AVAILABLE [facility] ACCOUNT BILL Comment: Please refer to the following specimen for additional lab results. TEST: [id number] von Willebrand Profile [id number] Thrombin Time SEE SPECIMEN [id number] Result cannot be obtained for this observation. 02/02/2022 4:04 PM CDT 02/02/2022 Narrative Resulting Agency Comment Lab Testing performed at: [facility] [address] [facility] [phone] Janusz Bravo MD LAB - CHEMISTRY ALBA MARISCAL Performing Organization Address City/[facility]/ZIP Co de Phone Number [facility] ACCOUNT BILL [address] [place] [address] * ANCA VASCULITIS PANEL (02/02/2022 4:04 PM CDT) Myeloperoxidase Antibody <0.2 0.0 - 0.9 units [facility] ACCOUNT BILL Proteinase 3 Antibody <0.2 0.0 - 0.9 units [facility] ACCOUNT BILL Cytoplasmic (C-ANCA) <1:20 Neg:<1:20 titer [facility] ACCOUNT BILL p-ANCA Titer <1:20 Neg:<1:20 titer [facility] ACCOUNT BILL Comment: The presence of positive fluorescence exhibiting P-ANCA or C-ANCA patterns alone is not specific for the diagnosis of Hamilton's Granulomatosis (WG) or microscopic polyangiitis. Decisions about treatment should not be based solely on ANCA IFA results. The International ANCA Group Consensus recommends follow up testing of positive sera with both MS-3 and MPO-ANCA enzyme immunoassays. As many as 5% serum samples are positive only by EIA. Ref. AM J Clin Pathol 1999;111:507-513. Atypical p-ANCA Titer <1:20 Neg:<1:20 titer [facility] ACCOUNT BILL Comment: The atypical pANCA pattern has been observed in a significant percentage of patients with ulcerative colitis, primary sclerosing cholangitis and autoimmune hepatitis. Blood BLOOD SPECIMEN / Unknown 02/02/2022 4:04 PM CDT 02/02/2022 Narrative Resulting Agency Comment Lab Testing performed at: [facility] [place] [address] [phone] Janusz Bravo MD LAB - CHEMISTRY ALBA MARISCAL [facility] Organization Address City/State/[facility] Co de Phone Number [facility] ACCOUNT BILL [address] [place] [address] * RHEUMATOID FACTOR BLOOD QUANTITATIVE (02/02/2022 4:04 PM CDT) Only the most recent of2 resultswithin the time period is included. Rheumatoid Factor <10.0 <14.0 IU/mL [facility] ACCOUNT BILL Blood BLOOD SPECIMEN / Unknown 02/02/2022 4:04 PM CDT 02/02/2022 Narrative Resulting Agency Comment Lab Testing performed at: [facility] [address] [facility] [phone] Janusz Bravo MD LAB - CHEMISTRY ALBA MARISCAL [facility] ACCOUNT BILL [address] [place] [address] * C-REACTIVE PROTEIN (02/02/2022 4:04 PM CDT) Only the most recent of2 resultswithin the time period is included. C-Reactive Protein 2 0 - 10 mg/L [facility] ACCOUNT BILL Blood BLOOD SPECIMEN / Unknown 02/02/2022 4:04 PM CDT 02/02/2022 Narrative Resulting Agency Comment Lab Testing performed at: [facility] [address] [facility] [phone] Janusz Bravo MD LAB - CHEMISTRY ALBA MARISCAL Performing Organization Address [facility] Co de Phone Number [facility] ACCOUNT BILL [address] [place] [address] * MARINA BLOOD SCREEN W/REFLEX TITER (02/02/2022 4:04 PM CDT) Only the most recent of2 resultswithin the time period is included. MARINA Negative [facility] ACCOUNT BILL Comment: Negative <1:80 Borderline 1:80 Positive >1:80 ICAP nomenclature: AC-0 For more information about Hep-2 cell patterns use ANApatterns.org, the official website for the International Consensus on Antinuclear Antibody (MARINA) Patterns (ICAP). Blood BLOOD SPECIMEN / Unknown 02/02/2022 4:04 PM CDT 02/02/2022 Narrative Resulting Agency Comment Lab Testing performed at: [facility] [place] [address] [facility] [place] [phone] Janusz Bravo MD LAB - CHEMISTRY ALBA MARISCAL Performing Organization Address City/[facility]/ZIP Co de Phone Number [facility] ACCOUNT BILL [address] [place] [address] * COPPER BLOOD (02/02/2022 4:04 PM CDT) Copper 156 80 - 158 ug/dL [facility] ACCOUNT BILL Comment:Detection Limit = 5 Blood BLOOD SPECIMEN / Unknown 02/02/2022 4:04 PM CDT 02/02/2022 Narrative [facility] ACCOUNT BILL - 02/03/2022 11:07 PM CDT Test(s) [id number], Serum or Plasma was developed and its performance characteristics determined by [facility]. It has not been cleared or approved by the Food and Drug Administration. Resulting Agency Comment Lab Testing performed at: [facility] [phone] Janusz Bravo MD LAB - CHEMISTRY ALBA MARISCAL [facility] ACCOUNT BILL [address] [place] [address] * (ABNORMAL) COAGULATION PANEL W D-DIMER (02/02/2022 4:04 PM CDT) Fibrinogen Activity 469 193 - 507 mg/dL [facility] ACCOUNT BILL FDP 5(H) <5 ug/mL [facility] ACCOUNT BILL INR NOT AVAILABLE [facility] ACCOUNT BILL Comment:Result cannot be obt ained for this observation. PT NOT AVAILABLE [facility] ACCOUNT BILL Comment: Test not performed Result cannot be obtained for this observation. PTT NOT AVAILABLE [facility] ACCOUNT BILL Comment: Test not performed Result cannot be obtained for this observation. Platelet Count 450 150 - 450 x10E3/uL [facility] ACCOUNT BILL D-Dimer 0.63(H) 0.00 - 0.49 mg/L FEU [facility] ACCOUNT BILL Comment: According to the assay travel [employer]'s published package insert, a normal (<0.50 mg/L FEU) D-dimer result in conjunction with a non-high clinical probability assessment, excludes deep vein thrombosis (DVT) and pulmonary embolism (PE) with high sensitivity. . D-dimer values increase with age and this can make VTE exclusion of an older population difficult. To address this, the [employer], based on best available evidence and recent guidelines, recommends that clinicians use age-adjusted D-dimer thresholds in patients greater than 50 years of age with: a) a low probability of PE who do not meet all Pulmonary Embolism Rule Out Criteria, or b) in those with intermediate probability of PE. The formula for an age-adjusted D-dimer cut-off is age/100 . For example, a 60 year old patient would have an age-adjusted cut-off of 0.60 mg/L FEU and an 80 year old 0.80 mg/L FEU. Blood BLOOD SPECIMEN / Unknown 02/02/2022 4:04 PM CDT 02/02/2022 Narrative Resulting Agency Comment Lab Testing performed at: [facility] [place] [address] [facility] [phone] Janusz Bravo MD LAB - COAGULATION OR DERABLES Performing Organization Address City/[facility]/ZIP Co de Phone Number [facility] ACCOUNT BILL [address] [place] [address] * ERYTHROCYTE SEDIMENTATION RATE (02/02/2022 4:04 PM CDT) Only the most recent of2 resultswithin the time period is included. Erythrocyte Sedimentation Rate Westergren 12 0 - 40 mm/hr [facility] ACCOUNT BILL Blood BLOOD SPECIMEN / Unknown 02/02/2022 4:04 PM CDT 02/02/2022 Narrative Resulting Agency Comment Lab Testing performed at: [facility] [place] [address] [facility] [phone] Janusz Bravo MD LAB - HEMATOLOGY ORD ERABLES Performing Organization Address [facility] Co de Phone Number [facility] ACCOUNT BILL [address] [place] [address] * (ABNORMAL) VITAMIN B12 FOLATE PANEL (02/02/2022 4:04 PM CDT) Vitamin B12 >2000(H) 213 - 816 pg/mL [facility] ACCOUNT BILL Folate 8.3 7.0 - 31.4 ng/mL [facility] ACCOUNT BILL Blood BLOOD SPECIMEN / Unknown 02/02/2022 4:04 PM CDT 02/02/2022 Narrative Resulting Agency Comment Lab Testing performed at: [facility] [address] [facility] [phone] Janusz Bravo MD LAB - CHEMISTRY ORDE RABJARON Performing Organization Address City/[facility]/ZIP Co de Phone Number [facility] ACCOUNT BILL [address] [place] [address] * TSH (02/02/2022 4:04 PM CDT) Pathologist [facility] TSH 1.240 0.450 - 4.500 uIU/mL [facility] ACCOUNT BILL Blood BLOOD SPECIMEN / Unknown 02/02/2022 4:04 PM CDT 02/02/2022 Narrative Resulting Agency Comment Lab Testing performed [facility]: [facility] [address] [facility] [phone] Janusz Bravo MD LAB - CHEMISTRY ALBA MARISCAL Performing Organization Address [facility] de Phone Number [facility] ACCOUNT BILL [address] [place] [address] * (ABNORMAL) IMMUNOGLOBULINS IGG/IGM/IGA PANEL (02/02/2022 4:04 PM CDT) [facility] IgG Quantitative 489(L) 586 - 1,602 mg/dL [facility] ACCOUNT BILL IgA Quantitative 191 87 - 352 mg/dL [facility] ACCOUNT BILL IgM Quantitative 116 26 - 217 mg/dL [facility] ACCOUNT BILL Blood BLOOD SPECIMEN / Unknown 02/02/2022 4:04 PM CDT 02/02/2022 Narrative Resulting Agency Comment Lab Testing performed at: [facility] [address] [facility] [phone] Janusz Bravo MD LAB - CHEMISTRY ALBA MARISCAL Performing Organization Address [facility] Co de Phone Number [facility] ACCOUNT BILL [address] [place] [address] * (ABNORMAL) COMPLEMENT C3 (02/02/2022 4:04 PM CDT) Only the most recent of2 resultswithin the time period is included. [facility] Complement C3 222(H) 82 - 167 mg/dL [facility] ACCOUNT BILL Blood BLOOD SPECIMEN / Unknown 02/02/2022 4:04 PM CDT 02/02/2022 Narrative Resulting Agency Comment Lab Testing performed at: [employer] [address] [facility] [phone] Janusz Bravo MD LAB - CHEMISTRY ORDE LOIDA [facility] ACCOUNT BILL [place] [address] * PLATELET FUNCTION SCREEN PANEL (02/02/2022 3:57 PM CDT) PFA Collagen/ADP 79 55 - 118 Seconds 02/02/2022 7:[address] [facility] PFA Collagen/Epine phrine 156 85 - 193 Seconds 02/02/2022 7:52 PM CDT [facility] Blood BLOOD SPECIMEN / Unknown Lab Venipuncture / Unknown 02/02/2022 3:57 PM CDT 02/02/2022 4:31 PM CDT Janusz Bravo MD LAB - COAGULATION OR DERABLES Performing Organization Address City/[facility]/ZIP Co de Phone Number [place] [phone], [facility] [phone] * ANCA SCREEN W/ REFLX MPO+PR3+TITER (03/17/2014 2:20 PM MANUFACTURING ENGINEERING DIRECTOR) Myeloperoxidase Antibody <9.0 0.0 - 9.0 U/mL [facility] (BEAKER) Proteinase 3 <3.5 0.0 - 3.5 U/mL [facility] (BEAKER) C-ANCA Titer <1:20 Neg:<1:[address] [facility] (BEAKER) p-ANCA <1:20 Neg:<1:[address] [facility] (BEAKER) Comment: The presence of positive fluorescence exhibiting P-ANCA or C-ANCA patterns alone is not specific for the diagnosis of Hamilton's Granulomatosis (WG) or microscopic polyangiitis. Decisions about treatment should not be based solely on ANCA IFA results. The International ANCA Group Consensus recommends follow up testing of positive sera with both MS-3 and MPO-ANCA enzyme immunoassays. As many as 5% serum samples are positive only by EIA. Ref. AM J Clin Pathol 1999;111:507-513. Atypical p-ANCA <1:20 Neg:<1:[address] [facility] (BEAKER) Comment: The atypical pANCA pattern has been observed in a significant percentage of patients with ulcerative colitis, primary sclerosing cholangitis and autoimmune hepatitis. 03/17/2014 2:20 PM MANUFACTURING ENGINEERING DIRECTOR 03/17/2014 6:31 PM MANUFACTURING ENGINEERING DIRECTOR Narrative [facility] (BEAKER) - 03/26/2014 11:19 AM MANUFACTURING ENGINEERING DIRECTOR Performed at: [address] [id number] Food Products Tester: Jarrod Walker MD, Phone: [phone] Performed at: [address] [id number] Food Products Tester: Kameron Rowan PhD, Phone: [phone] Alena Antony MD LAB - CHEMISTRY ORD ERABLES Performing Organization Address [facility] Co de Phone Number [facility]) * (ABNORMAL) URINALYSIS MICROSCOPIC ONLY REFLEXED (03/17/2014 2:20 PM MANUFACTURING ENGINEERING DIRECTOR) WBC, UA 0-5 0 - 5 /hpf [facility] (BEAKER) RBC UA 0-2 0 - 2 /hpf [facility] (BEAKER) Epithelial Cells (non renal) >10(A) 0 - 10 /hpf [facility] (BEAKER) Mucus UA Present Not Estab. [facility] (BEAKER) Bacteria UA None seen None seen/Few [facility] (BEAKER) 03/17/2014 2:20 PM MANUFACTURING ENGINEERING DIRECTOR 03/17/2014 6:31 PM MANUFACTURING ENGINEERING DIRECTOR Narrative [facility] (BEAKER) - 03/26/2014 11:19 AM MANUFACTURING ENGINEERING DIRECTOR Performed at: [address] [id number] Food Products Tester: Kameron Rowan PhD, Phone: [phone] Alena Antony MD LAB - URINALYSIS OR DERABLES Performing Organization Address City/[facility] Co de Phone Number [facility]) * LYME DISEASE IGG/IGM PANEL WB/IMMUNOBLOT (03/17/2014 2:20 PM MANUFACTURING ENGINEERING DIRECTOR) IgG P93 Antibody Absent [facility] (BEAKER) IgG P66 Antibody Absent [facility] (BEAKER) IgG P58 Antibody Absent [facility] (BEAKER) IgG P45 Antibody Absent [facility] (BEAKER) IgG P41 Antibody Absent [facility] (BEAKER) IgG P39 Antibody Absent [facility] (BEAKER) IgG P30 Antibody Absent [facility] (BEAKER) IgG P28 Antibody Absent [facility] (BEAKER) IgG P23 Antibody Absent [facility] (BEAKER) IgG P18 Antibody Absent [facility] (BEAKER) Interpretation Lyme Antibody IgG Western Blot Negative [facility] (BEAKER) Comment: Positive: 5 of the following Borrelia-specific bands: 18,23,28,30,39,41,45,58, 66, and 93. Negative: No bands or banding patterns which do not meet positive criteria. IgM P41 Antibody Absent [facility] (BEAKER) IgM P39 Antibody Absent [facility] (BEAKER) IgM P23 Antibody Absent [facility] (BEAKER) Interpretation Lyme Antibody IgM WB Negative [facility] (BEAKER) Comment: Note: An equivocal or positive EIA result followed by a negative Western Blot result is considered NEGATIVE. An equivocal or positive EIA result followed by a positive Western Blot is considered POSITIVE by the CDC. Positive: 2 of the following bands: 23,39 or 41 Negative: No bands or banding patterns which do not meet positive criteria. Criteria for positivity are those recommended by CDC/ASTPHLD. p23=Osp C, o03=fvjdjfmhf Note: Sera from individuals with the following may cross react in the Lyme Western Blot assays: other spirochetal diseases (periodontal disease, leptospirosis, relapsing fever, yaws, and pinta); connective autoimmune (Rheumatoid Arthritis and Systemic Lupus Erythematosus and also individuals with Antinuclear Antibody); other infections (Whitharral Spotted Fever; Michael-Ceron Virus, and Cytomegalovirus). Blood specimen (specimen) BLOOD SPECIMEN / Unknown 03/17/2014 2:20 PM MANUFACTURING ENGINEERING DIRECTOR 03/17/2014 6:31 PM MANUFACTURING ENGINEERING DIRECTOR Narrative [facility] (BEAKER) - 03/26/2014 11:19 AM MANUFACTURING ENGINEERING DIRECTOR Performed at: [address] [place] [id number] Food Products Tester: Jarrod Walker MD, Phone: [phone] Alena Antony MD LAB - SEROLOGY ALBA MARISCAL [facility] * QUANTIFERON TB-GOLD INC (03/17/2014 2:20 PM MANUFACTURING ENGINEERING DIRECTOR) [facility] QuantiFERON TB Gold Negative Negative [facility] (BEAKER) QuantiFERON Positive Criteria [facility] (BEAKER) Comment: To be considered positive a specimen should have a TB Ag minus Nil value greater than or equal to 0.35 IU/mL and in addition the TB Ag minus Nil value must be greater than or equal to 25% of the Nil value. There may be insufficient information in these values to differentiate between some negative and some indeterminate test values. QuantiFERON TB Antigen 0.01 IU/mL [facility] (BEAKER) QuantiFERON Nil Value 0.02 IU/mL [facility] (BEAKER) QuantiFERON Mitogen Value 6.99 IU/mL [facility] (BEAKER) QuantiFERON TB Antigen minus Nil value <0.00 IU/mL [facility] (BEAKER) Interpretations [facility] (BEAKER) Comment: The QuantiFERON TB Gold (in Tube) assay is intended for use as an aid in the diagnosis of TB infection. Negative results suggest that there is no TB infection. In patients with high suspicion of exposure, a negative test should be repeated. A positive test indicates infection with Mycobacterium tuberculosis. Among individuals without tuberculosis infection, a positive test may be due to exposure to M. kansasii, M. szulgai or M. marinum. On the Internet, go to cdc.gov/tb for further details. 03/17/2014 2:20 PM MANUFACTURING ENGINEERING DIRECTOR 03/17/2014 6:31 PM MANUFACTURING ENGINEERING DIRECTOR Narrative [facility] (BEAKER) - 03/26/2014 11:19 AM MANUFACTURING ENGINEERING DIRECTOR Performed at: [address] [place], [place] [address] [address] [id number] Food Products Tester: Kameron Rowan PhD, Phone: [phone] Alena Antony MD LAB - SEROLOGY ALBA MARISCAL [facility] (BEAKER) * URINALYSIS W/MICROSCOPIC REFLEX TO CULTURE (03/17/2014 2:20 PM MANUFACTURING ENGINEERING DIRECTOR) Specific [facility] 1.023 1.005 - 1.030 [facility] (BEAKER) pH Urine 6.0 5.0 - 7.5 [facility] (BEAKER) Color UA Yellow Yellow [facility] (BEAKER) Appearance Clear Clear [facility] (BEAKER) Leukocyte Esterase Negative Negative [facility] (BEAKER) Protein UA Negative Negative/Tra ce [facility] (BEAKER) Glucose UA Negative Negative [facility] (BEAKER) Ketone UA Negative Negative [facility] (BEAKER) Occult Blood Negative Negative [facility] (BEAKER) Bilirubin Negative Negative [facility] (BEAKER) Urobilinogen Semi-Qn 0.2 0.0 - 1.9 mg/dL [facility] (BEAKER) Nitrite UA Negative Negative [facility] (BEAKER) Microscopic Examination [facility] (BEAKER) Comment:Microscopic follows if indicated. Microscopic Examination See below: [facility] (BEAKER) Comment:Microscopic was bernadine cated and was performed. Urinalysis Reflex [facility] (BEAKER) Comment:This specimen will n ot reflex to a Urine Culture. Urine specimen (specimen) 03/17/2014 2:20 PM MANUFACTURING ENGINEERING DIRECTOR 03/17/2014 6:31 PM MANUFACTURING ENGINEERING DIRECTOR Narrative [facility] (BEAKER) - 03/26/2014 11:19 AM MANUFACTURING ENGINEERING DIRECTOR Specimen Type->Urine Performed at: - [facility] [address] [id number] Food Products Tester: Kameron Rowan PhD, Phone: [phone] Alena Antony MD LAB - URINALYSIS OR DERABLES [facility]) * CELIAC DISEASE COMPREHENSIVE (03/17/2014 2:20 PM MANUFACTURING ENGINEERING DIRECTOR) Gliadin Antibody IgA 8 0 - [address] [facility] Comment: Negative 0 - 19 Weak Positive 20 - 30 Moderate to Strong Positive >30 Gliadin Antibody IgG 2 0 - [address] [facility] ([facility]) Comment: Negative 0 - 19 Weak Positive 20 - 30 Moderate to Strong Positive >30 TTG Antibody IgA <2 0 - 3 U/mL [facility] ([facility]) Comment: Negative 0 - 3 Weak Positive 4 - 10 Positive >10 Tissue Transglutaminase (tTG) has been identified as the endomysial antigen. Studies have demonstr- ated that endomysial IgA antibodies have over 99% specificity for gluten sensitive enteropathy. TTG Antibody IgG <2 0 - 5 U/mL [facility] ([facility]) Comment: Negative 0 - 5 Weak Positive 6 - 9 Positive >9 [address] Antib[address] Negative Negative [facility] ([facility]) IgA Quantitative 202 91 - 414 mg/dL [facility]) 03/17/2014 2:20 PM MANUFACTURING ENGINEERING DIRECTOR 03/17/2014 6:31 PM MANUFACTURING ENGINEERING DIRECTOR Narrative [facility] ([facility]) - 03/26/2014 11:19 AM MANUFACTURING ENGINEERING DIRECTOR Performed at: [address] [place] [id number] Food Products Tester: Kameron Rowan PhD, Phone: [phone] Alena Antony MD LAB - CHEMISTRY ORD ERABLES [facility]) * TSH HI LOW REFLEX FREE T4 (03/17/2014 2:20 PM MANUFACTURING ENGINEERING DIRECTOR) TSH 2.780 0.450 - 4.500 uIU/mL [facility] ([facility]) 03/17/2014 2:20 PM MANUFACTURING ENGINEERING DIRECTOR 03/17/2014 6:31 PM MANUFACTURING ENGINEERING DIRECTOR Narrative [facility] ([facility]) - 03/26/2014 11:19 AM MANUFACTURING ENGINEERING DIRECTOR Performed at: 01 - [address] [id number] Food Products Tester: Kameron Rowan PhD, Phone: [phone] Alena Antony MD LAB - CHEMISTRY ORD ERABLES [facility] * EHRLICHIA CHAFFEENSIS AB IGG/IGM PANEL (03/17/2014 2:20 PM MANUFACTURING ENGINEERING DIRECTOR) Ehrlichia Chaffeensis Antibody IgG Negative Neg:<1:64 [facility]) Ehrlichia Chaffeensis Antibody IgM Negative Neg:<1:20 [facility]) Comment: IgG titers if 1:64 or greater indicate exposure or acute and convalescent samples showing a four-fold increase, and/or the presence of IgM indicate recent or current infection. This test was developed and its performance characteristics determined by [facility]. It has not been cleared or approved by the U.S. Food and Drug Administration. The FDA has determined that such clearance or approval is not necessary. This test is used for clinical purposes. It should not be regarded as investigational or for research. HGE Antibody IgG Titer Negative Neg:<1:64 [facility] ([facility]) Comment: HGE IgG levels are detectable 7 to 10 days post infection and persist approximately one year. This test was developed and its performance characteristics determined by [employer]. It has not been cleared or approved by the U.S. Food and Drug Administration. The FDA has determined that such clearance or approval is not necessary. This test is used for clinical purposes. It should not be regarded as investigational or for research. HGE Antibody IgM Titer Negative Neg:<1:20 [facility] ([facility]) Comment: IgM levels usually rise 3 to 5 days post infection and fall to normal levels in approximately 30 to 60 days. This test was developed and its performance characteristics determined by [employer]. It has not been cleared or approved by the U.S. Food and Drug Administration. The FDA has determined that such clearance or approval is not necessary. This test is used for clinical purposes. It should not be regarded as investigational or for research. 03/17/2014 2:20 PM MANUFACTURING ENGINEERING DIRECTOR 03/17/2014 6:31 PM MANUFACTURING ENGINEERING DIRECTOR N[facility]ative [facility] - 03/26/2014 11:19 AM MANUFACTURING ENGINEERING DIRECTOR Performed at: [address] [id number] Food Products Tester: Jarrod Walker MD, Phone: [phone] Alena Antony MD LAB - SEROLOGY ORDCristina MARISCAL Performing Organization Address City/[facility]/ZIP Co de Phone Number [facility] ([facility]) * CUSTOMER RELATIONS SPECIALIST ANTIBODY (03/17/2014 2:20 PM MANUFACTURING ENGINEERING DIRECTOR) CUSTOMER RELATIONS SPECIALIST Antibody 0.3 0.0 - 0.9 AI [facility] ([facility]) Blood specimen (specimen) BLOOD SPECIMEN / Unknown 03/17/2014 2:20 PM MANUFACTURING ENGINEERING DIRECTOR 03/17/2014 6:31 PM MANUFACTURING ENGINEERING DIRECTOR Narrative [facility] ([facility]) - 03/26/2014 11:19 AM MANUFACTURING ENGINEERING DIRECTOR Performed at: [address] [id number] Food Products Tester: Kameron Rowan PhD, Phone: [phone] Alena Antony MD LAB - CHEMISTRY ORD BEN Performing Organization Address [facility] Co de Phone Number [facility] ([facility]) * SS-A/SS-B (SJOGRENS) ANTIBODY PANEL (03/17/2014 2:20 PM MANUFACTURING ENGINEERING DIRECTOR) Sjogren's Antibodies (SSA) <0.2 0.0 - 0.9 AI [facility] ([facility]) Sjogren's Antibodies (SSB) <0.2 0.0 - 0.9 AI [facility] ([facility]) 03/17/2014 2:20 PM MANUFACTURING ENGINEERING DIRECTOR 03/17/2014 6:31 PM MANUFACTURING ENGINEERING DIRECTOR Narrative [facility] ([facility]) - 03/26/2014 11:19 AM MANUFACTURING ENGINEERING DIRECTOR Performed at: [address] [id number] Food Products Tester: Kameron Rowan PhD, Phone: [phone] Alena Antony MD LAB - CHEMISTRY ORD ERABLES Performing Organization Address [facility]/ZIP Co de Phone Number [facility]) * PM/SCL-100 ANTIBODY IGG (03/17/2014 2:20 PM MANUFACTURING ENGINEERING DIRECTOR) SETH PM-Scl Antibody 2.0 EU/mL [facility] ([facility]) Comment: Reference Range: Negative: < 20 EU/ml Borderline/Equivocal: 20-25 EU/ml Positive: > 25 EU/ml Antibodies to PM-Scl are associated with myositis-scleroderma overlap syndrome in 55%, scleroderma in 13.2% and polymyositis in 7.5% of the patients (Nallely Wood et al; 2005). A negative result does not rule out diagnosis. Low PM/Scl antibody levels may be of limited significance. The finding of nucleolar pattern on HEp-2 may be of help in cases of low PM-SCl antibody levels or borderline questionable results. *This test has been developed and performance parameters have been validated by [employer] This test has not been approved by the U.S. Food and Drug Administration (FDA); however, US FDA approval is not required for clinical use. It is not intended that clinical diagnosis and patient management decisions be made using these results alone. This test has been validated using serum samples. The travel cota has not determined the efficacy of this test when performed on CSF, plasma, joint or pleural fluid specimens. The performance characteristics of this test were determined by [employer] 03/17/2014 2:20 PM MANUFACTURING ENGINEERING DIRECTOR 03/17/2014 6:31 PM MANUFACTURING ENGINEERING DIRECTOR Narrative [facility] ([facility]) - 03/26/2014 11:19 AM MANUFACTURING ENGINEERING DIRECTOR Performed at: 03 - [facility] [address] [place] [id number] Food Products Tester: Deep Garcia PhD, Phone: [phone] Alena Antony MD LAB - SEROLOGY ORDE LOIDA Performing Organization Address City/[facility]/ZIP Co de Phone Number [facility] ([facility]) * COMPLEMENT TOTAL (03/17/2014 2:20 PM MANUFACTURING ENGINEERING DIRECTOR) Complement Total CH50 58 22 - 60 U/mL [facility] ([facility]) Blood specimen (specimen) BLOOD SPECIMEN / Unknown 03/17/2014 2:20 PM MANUFACTURING ENGINEERING DIRECTOR 03/17/2014 6:31 PM MANUFACTURING ENGINEERING DIRECTOR Narrative [facility] ([facility]) - 03/26/2014 11:19 AM MANUFACTURING ENGINEERING DIRECTOR Performed at: [address] [place] [id number] Food Products Tester: Kameron Rowan PhD, Phone: [phone] Alena Antony MD LAB - CHEMISTRY ORD ERABLES [facility] * VITAMIN D 25-HYDROXY (03/17/2014 2:20 PM MANUFACTURING ENGINEERING DIRECTOR) Pathologist [facility] Vitamin D, 25 Hydroxy 30.8 30.0 - 100.0 ng/mL [facility] ([facility]) Comment: Vitamin D deficiency has been defined by the [place] of Medicine and an Endocrine Society practice guideline as a level of serum 25-OH vitamin D less than 20 ng/mL (1,2). The Endocrine Society went on to further define vitamin D insufficiency as a level between 21 and 29 ng/mL (2). 1. IOM ([place] of [place]). 2010. Dietary reference intakes for calcium and D. [place]: The National Academies Press. 2. Kelli MF, Neli NC, Sandra SEO, et al. Evaluation, treatment, and prevention of vitamin D deficiency: an Endocrine Society clinical practice guideline. JCEM. 2010; 96(7):1911-30. Blood specimen (specimen) BLOOD SPECIMEN / Unknown 03/17/2014 2:20 PM MANUFACTURING ENGINEERING DIRECTOR 03/17/2014 6:31 PM MANUFACTURING ENGINEERING DIRECTOR Narrative [facility] ([facility]) - 03/26/2014 11:19 AM MANUFACTURING ENGINEERING DIRECTOR Performed at: [address] [id number] Food Products Tester: Kameron Rowan PhD, Phone: [phone] Alena Antony MD LAB - CHEMISTRY ORD ERABLES [facility] ([facility]) * ALDOLASE (03/17/2014 2:20 PM MANUFACTURING ENGINEERING DIRECTOR) [facility] Aldolase 3.6 1.2 - 7.6 U/L [facility]) Comment:Please note refere nce interval change Blood specimen (specimen) BLOOD SPECIMEN / Unknown 03/17/2014 2:20 PM MANUFACTURING ENGINEERING DIRECTOR 03/17/2014 6:31 PM MANUFACTURING ENGINEERING DIRECTOR Narrative [facility]) - 03/26/2014 11:19 AM MANUFACTURING ENGINEERING DIRECTOR Performed at: [address] [id number] Food Products Tester: Kameron Rowan PhD, Phone: [phone] Alena Antony MD LAB - CHEMISTRY ORD ERABLES Performing Organization Address [facility]/ZIP Co de Phone Number [facility] ([facility]) * CYCLIC CITRUL PEPTIDE AB IGG (CCP) (03/17/2014 2:20 PM MANUFACTURING ENGINEERING DIRECTOR) [facility] Cyclic Citrullinated Peptide Antibody <1 0 - 19 units [facility]) Comment: Negative <20 Weak positive 20 - 39 Moderate positive 40 - 59 Strong positive >59 Blood specimen (specimen) BLOOD SPECIMEN / Unknown 03/17/2014 2:20 PM MANUFACTURING ENGINEERING DIRECTOR 03/17/2014 6:31 PM MANUFACTURING ENGINEERING DIRECTOR Narrative [facility] ([facility]) - 03/26/2014 11:19 AM MANUFACTURING ENGINEERING DIRECTOR Performed at: [address] [id number] Food Products Tester: Jarrod aWlker MD, Phone: [phone] Alena Antony MD LAB - CHEMISTRY ORD ERABLES [facility] ([facility]) * QUANTIFERON TB-GOLD (03/17/2014 2:20 PM MANUFACTURING ENGINEERING DIRECTOR) [facility] QuantiFERON TB Gold [facility] ([facility]) Comment:Incubated, testing t o follow. Blood specimen (specimen) BLOOD SPECIMEN / Unknown 03/17/2014 2:20 PM MANUFACTURING ENGINEERING DIRECTOR 03/17/2014 6:31 PM MANUFACTURING ENGINEERING DIRECTOR Narrative [facility] ([facility]) - 03/26/2014 11:19 AM MANUFACTURING ENGINEERING DIRECTOR Performed at: 04 - [address] [id number] Food Products Tester: Mechelle Lobo MD, Phone: [phone] Alena Antony MD LAB - CHEMISTRY ORD ERABLES [facility]) * SACCHAROMYCES ANTIBODY (ASCA) IGG/IGA PANEL (03/17/2014 2:20 PM MANUFACTURING ENGINEERING DIRECTOR) Pathologist [facility] Saccharomyces cerevisiae Antibody IgG <20.0 0.0 - 24.9 Units [facility] ([facility]) Comment: Negative <20.0 Equivocal 20.1 - 24.9 Positive >or= 25.0 Saccharomyces cerevisiae Antibody IgA <20.0 0.0 - 24.9 Units [facility] ([facility]) Comment: Negative <20.0 Equivocal 20.1 - 24.9 Positive >or= 25.0 IgA and IgG antibody testing for S. cerevisiae is useful adjunct testing for differentiating Crohn's disease and ulcerative colitis. Close to 80% of Crohn's disease patients are positive for either IgA or IgG. In ulcerative colitis, less than 15% are positive for IgG and less than 2% are positive for IgA. Fewer than 5% are positive for either IgG or IgA antibody, and no healthy controls had antibody for both. Blood specimen (specimen) BLOOD SPECIMEN / Unknown 03/17/2014 2:20 PM MANUFACTURING ENGINEERING DIRECTOR 03/17/2014 6:31 PM MANUFACTURING ENGINEERING DIRECTOR Narrative [facility] - 03/26/2014 11:19 AM MANUFACTURING ENGINEERING DIRECTOR Performed at: [address] [id number] Food Products Tester: Jarrod Walker MD, Phone: [phone] Alena Antony MD LAB - SEROLOGY ALBA MARISCAL [facility] Organization Address City/State/ZIP Co de Phone Number [facility] ([facility]) * CBC W AUTO DIFFERENTIAL (03/17/2014 2:20 PM MANUFACTURING ENGINEERING DIRECTOR) WBC 8.1 3.4 - 10.8 x10E3/uL [facility] ([facility]) RBC 4.30 3.77 - 5.28 x10E6/uL [facility] ([facility]) Hemoglobin 13.2 11.1 - 15.9 g/dL [facility] ([facility]) Hematocrit 39.9 34.0 - 46.6 % [facility] ([facility]) MCV 93 79 - 97 fL [facility] ([facility]) MCH 30.7 26.6 - 33.0 pg [facility] ([facility]) MCHC 33.1 31.5 - 35.7 g/dL [facility] ([facility]) RDW-CV 12.5 12.3 - 15.4 % [facility] ([facility]) Platelet 284 150 - 379 x10E3/uL [facility] ([facility]) Neutrophils % 65 % [facility] ([facility]) Lymphocytes % 28 % [facility] ([facility]) Monocytes % 5 % [facility] ([facility]) Eosinophils % 1 % [facility] ([facility]) Basophil % 1 % [facility] ([facility]) Neutrophils Absolute 5.3 1.4 - 7.0 x10E3/uL [facility] ([facility]) Lymphocyte Absolute Manual 2.3 0.7 - 3.1 x10E3/uL [facility] ([facility]) Monocytes Absolute 0.4 0.1 - 0.9 x10E3/uL [facility] ([facility]) Eosinophils Absolute Manual 0.1 0.0 - 0.4 x10E3/uL [facility] ([facility]) Basophil Absolute Manual 0.1 0.0 - 0.2 x10E3/uL [facility] ([facility]) Immature Granulocytes % 0 % [facility] ([facility]) Immature Granulocytes absolute 0.0 0.0 - 0.1 x10E3/uL [facility] ([facility]) Blood specimen (specimen) BLOOD SPECIMEN / Unknown 03/17/2014 2:20 PM MANUFACTURING ENGINEERING DIRECTOR 03/17/2014 6:31 PM MANUFACTURING ENGINEERING DIRECTOR Narrative [facility] ([facility]) - 03/26/2014 11:19 AM MANUFACTURING ENGINEERING DIRECTOR Performed at: [address] [place] [id number] Food Products Tester: Kameron Rowan PhD, Phone: [phone] Alena Antony MD LAB - HEMATOLOGY OR DERABLES Performing Organization Address [facility] Co de Phone Number [facility] * LDH BLOOD (03/17/2014 2:20 PM MANUFACTURING ENGINEERING DIRECTOR) LDH Total 158 119 - 226 IU/L [facility] ([facility]) Blood specimen (specimen) BLOOD SPECIMEN / Unknown 03/17/2014 2:20 PM MANUFACTURING ENGINEERING DIRECTOR 03/17/2014 6:31 PM MANUFACTURING ENGINEERING DIRECTOR Narrative [facility] ([facility]) - 03/26/2014 11:19 AM MANUFACTURING ENGINEERING DIRECTOR Performed at: [address] [place] [id number] Food Products Tester: Kameron Rowan PhD, Phone: [phone] Alena Antony MD LAB - CHEMISTRY ORD ERABLES Performing Organization Address [facility] de Phone Number [facility] * CK BLOOD (03/17/2014 2:20 PM MANUFACTURING ENGINEERING DIRECTOR) CK Total 70 24 - 173 U/L [facility] ([facility]) Blood specimen (specimen) BLOOD SPECIMEN / Unknown 03/17/2014 2:20 PM MANUFACTURING ENGINEERING DIRECTOR 03/17/2014 6:31 PM MANUFACTURING ENGINEERING DIRECTOR Narrative [facility] ([facility]) - 03/26/2014 11:19 AM MANUFACTURING ENGINEERING DIRECTOR Performed at: [address] [place] [id number] Food Products Tester: Kameron Rowan PhD, Phone: [phone] Alena Antony MD LAB - CHEMISTRY ORD ERABLES Performing Organization Address City/[facility] Co de Phone Number [facility] * HEPATITIS SCREEN ACUTE (03/17/2014 2:20 PM MANUFACTURING ENGINEERING DIRECTOR) Hepatitis A Virus Antibody IgM Negative Negative [facility] ([facility]) Hepatitis B Virus Surface Antigen Screen Negative Negative [facility] ([facility]) Hepatitis B Core Virus Antibody IgM Negative Negative [facility] ([facility]) Hepatitis C Virus Antibody <0.1 0.0 - 0.9 s/co ratio [facility] ([facility]) Comment: Negative: < 0.8 Indeterminate: 0.8 - 0.9 Positive: > 0.9 In order to reduce the incidence of a false positive result, the CDC recommends that all s/co ratios between 1.0 and 10.9 be confirmed by a more specific supplemental or PCR testing. [facility] offers HCV Ab w/Reflex to Verification test #[id number]. Blood specimen (specimen) BLOOD SPECIMEN / Unknown 03/17/2014 2:20 PM MANUFACTURING ENGINEERING DIRECTOR 03/17/2014 6:31 PM MANUFACTURING ENGINEERING DIRECTOR Narrative [facility] - 03/26/2014 11:19 AM MANUFACTURING ENGINEERING DIRECTOR Performed at: [address] [place] [id number] Food Products Tester: Kameron Rowan PhD, Phone: [phone] Alena Antony MD LAB - CHEMISTRY ORD ERABLES Performing Organization Address [facility] Co de Phone Number [facility] * XR KNEE RIGHT 3VW (03/17/2014 1:14 PM MANUFACTURING ENGINEERING DIRECTOR) Anatomical Region Laterality Modality Lower Extremity Other Impressions 03/17/2014 5:32 PM MANUFACTURING ENGINEERING DIRECTOR Impression: No acute osseous injury or evidence of arthritis. Report dictated by Feroz Toscano MD (executive vice president and chief financial officer). This report was approved by Feroz Toscano M.D. on 03/17/2014 4:30 PM . I, Dr. ERICK LOZANO MD have personally reviewed and interpreted this examination/study. This report was electronically signed by ERICK LOZANO MD on 03/17/2014 5:32 PM . Narrative 03/17/2014 5:32 PM MANUFACTURING ENGINEERING DIRECTOR Exam: Right Knee, 3 views, weightbearing Date: 03/17/14 History: pain Comparison: None available Findings: There is no acute fracture or dislocation. No joint effusion is present. Joint spaces are preserved. There is no soft tissue swelling. Procedure Note Erick Lozano MD - 07/07/2017 Exam: Right Knee, 3 views, weightbearing Date: 03/17/14 History: pain Comparison: None available Findings: There is no acute fracture or dislocation. No joint effusion is present.Joint spaces are preserved. There is no soft tissue swelling. IMPRESSION Impression: No acute osseous injury or evidence of arthritis. Report dictated by Feroz Toscano MD (executive vice president and chief financial officer). This report was approved by Feroz Toscano M.D. on 03/17/2014 4:[address] ERICK Perez MD have personally reviewed and interpreted thisexamination/study. This report was electronically signed by ERICK LOZANO MD on 03/17/20145:32 PM . Alena Antony MD DIAGNOSTIC IMAGING ORDERABLES * XR KNEE LEFT 3VW (03/17/2014 1:14 PM MANUFACTURING ENGINEERING DIRECTOR) Anatomical Region Laterality Modality Lower Extremity Other Impressions 03/17/2014 5:32 PM MANUFACTURING ENGINEERING DIRECTOR Impression: 1. No evidence of arthritis. 2. Small joint effusion. Report dictated by Feroz Toscano MD (executive vice president and chief financial officer). This report was approved by Feroz Toscano M.D. on 03/17/2014 4:[address] ERICK Perez MD have personally reviewed and interpreted this examination/study. This report was electronically signed by ERICK LOZANO MD on 03/17/2014 5:32 PM . Narrative 03/17/2014 5:32 PM MANUFACTURING ENGINEERING DIRECTOR Exam: Left Knee, 3 views, weightbearing Date: 03/17/14 History: pain Comparison: None available Findings: There is no acute fracture or dislocation. A small joint effusion is present. Joint spaces are preserved. There is no soft tissue swelling. Procedure Note Erick Lozano MD - 07/07/2017 Exam: Left Knee, 3 views, weightbearing Date: 03/17/14 History: pain Comparison: None available Findings: There is no acute fracture or dislocation. A small joint effusion ispresent. Joint spaces are preserved. There is no soft tissue swelling. IMPRESSION Impression: 1. No evidence of arthritis. 2. Small joint effusion. Report dictated by Feroz Toscano MD (executive vice president and chief financial officer). This report was approved by Feroz Toscano M.D. on 03/17/2014 4:[address] ERICK Perez MD have personally reviewed and interpreted thisexamination/study. This report was electronically signed by ERICK LOZANO MD on 03/17/20145:32 PM . Alena Antony MD DIAGNOSTIC IMAGING ORDERABLES * XR PELVIS W BILAT HIP 2VW (03/17/2014 1:14 PM MANUFACTURING ENGINEERING DIRECTOR) Anatomical Region Laterality Modality Pelvis, Lower Extremity Other Impressions 03/17/2014 5:32 PM MANUFACTURING ENGINEERING DIRECTOR Impression: No acute osseous abnormality. No hip joint space narrowing. Report dictated by Feroz Toscano MD (executive vice president and chief financial officer). This report was approved by Feroz Toscano M.D. on 03/17/2014 4:[address] ERICK Perez MD have personally reviewed and interpreted this examination/study. This report was electronically signed by ERICK LOZANO MD on 03/17/2014 5:32 PM . Narrative 03/17/2014 5:32 PM MANUFACTURING ENGINEERING DIRECTOR Exam: Bilateral hips and AP pelvis Date: 03/17/14 History: pain Comparison: None available Findings: There is no fracture or dislocation. The femoral heads are in good alignment with the acetabulum. Hip joint spaces are preserved. Spurring is present at the iliac wings bilaterally. An intrauterine device is noted. Sacroiliac joints and pubic symphysis are intact. Procedure Note Ercik Lozano MD - 07/07/2017 Exam: Bilateral hips and AP pelvis Date: 03/17/14 History: pain Comparison: None available Findings: There is no fracture or dislocation. The femoral heads are in goodalignment with the acetabulum. Hip joint spaces are preserved. Spurring ispresent at the iliac wings bilaterally. An intrauterine device is noted.Sacroiliac joints and pubic symphysis are intact. IMPRESSION Impression: No acute osseous abnormality. No hip joint space narrowing. Report dictated by Feroz Toscano MD (executive vice president and chief financial officer). This report was approved by Feroz Toscano M.D. on 03/17/2014 4:31 PM . I, Dr. ERICK LOZANO MD have personally reviewed and interpreted thisexamination/study. This report was electronically signed by ERICK LOZANO MD on 03/17/20145:32 PM . Alena Antony MD DIAGNOSTIC IMAGING ORDERABLES Care Teams Teletypewriter Operator Relationship Specialty Start Date End Date Akash Soares MD [address] [place] [phone] PCP - General Family Medicine 08/07/23
--- OUTSIDE RECORDS SUMMARY | 2024-05-28 00:40 | XMS_ITS | Referral Summary ---
Author Organization [facility] [address] [facility] Address [address] [place] [id number] Care Team Providers Care Retort Condenser Attendant Name Role Phone Sreekanth Landis MD Primary Care Provider [phone] Gerardo Dalton MD Unavailable [phone] Allergies Active Allergy Reactions Criticality Noted Date Comments Diclofenac Rash Medium 10/07/2022 Doxycycline Nausea only,Rash,Swelling,Anaph ylaxis,Nausea And Vomiting High 03/17/2014 Reaction: Rash, Swelling, Nausea, Mold Unknown 10/07/2022 Medications escitalopram (LEXAPRO) 20 mg tablet Take 1 tablet (20 mg total) by mouth every morning 1 Active spironolactone (ALDACTONE) 50 mg tablet Take 1 tablet (50 mg total) by mouth daily 1 Active rosuvastatin (CRESTOR) 10 mg tablet Take 1 tablet (10 mg total) by mouth nightly at bedtime. 1 Active omeprazole (PriLOSEC) 20 mg capsule Take 1 capsule (20 mg total) by mouth daily Active cyanocobalamin, vitamin B-12, 5,000 mcg tablet, IR & ER, biphasic Take by mouth Active Breo Ellipta 100-25 mcg/dose diskus inhaler INHALE 1 PUFF BY MOUTH EVERY DAY 1 Active iron 18 mg tablet Take by mouth Active triamcinolone (KENALOG) 0.1 % cream Apply to affected area 1-2 times daily as needed. Avoid face and groin. 30 g 3 Active folic acid (FOLVITE) 1 mg tabletIndications :Undifferentiated inflammatory arthritis (CMS/HCC) (HCC) Take 2 tablets (2 mg total) by mouth daily 180 tablet 3 4 Active [employer] F[employer] WORKER Thyroid 30 mg tablet Take 1 tablet (30 mg total) by mouth 2 (two) times a day Active methotrexate 2.5 mg tabletIndications :Undifferentiated inflammatory arthritis (CMS/HCC) (HCC) TAKE 8 TABLETS BY MOUTH EVERY 7 DAYS 96 tablet 1 4 Active Active Problems Problem Noted Date Diagnosed Date Medication monitoring encounter 06/13/2022 Overview (10/25/2023): 10/2023 TPMT 17 Assessment & Plan (01/30/2024 8:59 AM CDT): Will monitor routine labs while on immunosuppressive medication. 01/2022: Neg Acute Hepatitis panel Assessment & Plan (10/14/2023 9:32 PM CDT): Will monitor routine labs while on immunosuppressive medication. 01/2022: Neg Acute Hepatitis panel Assessment & Plan (06/01/2023 10:33 AM WELL SERVICES OPERATOR): Will monitor routine labs while on immunosuppressive medication. 01/2022: Neg Acute Hepatitis panel Assessment & Plan (03/08/2023 10:18 AM WELL SERVICES OPERATOR): Will monitor routine labs while on immunosuppressive medication. 01/2022: Neg Acute Hepatitis panel Assessment & Plan (11/01/2022 9:16 PM CDT): Will monitor routine labs while on immunosuppressive medication. 01/2022: Neg Acute Hepatitis panel Assessment & Plan (08/07/2022 9:44 PM CDT): Will monitor routine labs while on immunosuppressive medication. To check labs today. 01/2022: Neg Acute Hepatitis panel Assessment & Plan (07/11/2022 12:03 PM CDT): Will monitor routine labs while on immunosuppressive medication. To check labs at next visit. 01/2022: Neg Acute Hepatitis panel Assessment & Plan (06/13/2022 9:55 AM WELL SERVICES OPERATOR): Will monitor routine labs while on immunosuppressive medication. 01/2022: Neg Acute Hepatitis panel Purpura 11/14/2021 Assessment & Plan (11/02/2022 10:57 AM CDT): Saw Dr. Bravo 2 days after her last appointment with me and refer her to [facility]. Has appointment to see Dr Barker at the end of December. Encouraged her to call their office to see if they have her previous biopsy results/tissue samples. Continue to wear sunscreen and long sleeve shirts. Assessment & Plan (06/13/2022 9:59 AM WELL SERVICES OPERATOR): Now seeing [facility] dermatology for additional work up. Assessment & Plan (03/14/2022 3:04 PM WELL SERVICES OPERATOR): Seeing Dr. Bravo. Recent work up was unrevealing as to why she is having purpura on her arms (continues to develop new areas of ecchymosis without trauma). Now off all NSAIDs and only takes Tylenol Arthritis prn. She is to follow up in April again. Seen with Dr. Dalton. Assessment & Plan (01/11/2022 10:16 AM CDT): Off HCQ, NSAIDs and tumeric and still developing bruising vs purpura to bilateral arms. She was encouraged to follow up with line therapist. Assessment & Plan (12/15/2021 12:49 PM CDT): Continues to have new purpura developing on her arms and has been off turmeric since last visit and stopped HCQ 2 weeks ago. Is taking Aleve daily but not ASA. Purpura still present on her arms but most are re-absorbing. New purpura on left finger. Will have her remain off HCQ, turmeric, ASA and stop Aleve. Likely the combination of the above medications was contributing to the purpura. Will provide a referral to hematology for evaluation if symptoms do not improve by next visit. Assessment & Plan (11/14/2021 12:01 PM CDT): Continues to have purpura present on bilateral forearms. Saw boat crew deck hand and had a biopsy 1 week ago - told it was bruising and she was encouraged to stop Turmeric as there may be a drug interaction with the plaquenil. She has since stopped it. Applying retinol cream and another topical agent to her forearms now without appreciable difference. Unlikely to be due to vasculitis as she has no other concerning symptoms, negative reported biopsy and normal acute inflammatory markers, which will recheck today. Poor sleep 02/07/2021 Assessment & Plan (02/07/2021 12:54 PM CDT): Reported nightly snoring with poor quality sleep, moderate daytime fatigue and difficulty losing weight. Will send to Dr. Palafox for sleep study/TRUDI work up. 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 Severe synovial thickening of the dorsal wrist with grade 1 power Doppler; some hyper-echoic densities seen within the dorsal compartmen 2. Effusion and grade 1 power Doppler of the 4th extensor compartment 3. Irregularity of the lunate without confirmed erosion 4. Moderate-marked synovial thickening of the 2nd and 3rd PIPJ with grade 1 effusion of the 3rd PIPJ *These findings on examination will have to be correlated clinically. Right hand/wrist US (08/17/22): 1) Mild synovial thickening of the dorsal wrist without power Doppler 2) Suspected erosion of the dorsal lunate 3) Moderate synovial thickening of the 2nd and 3rd PIPJ 4) Moderate spurring of the 1st CMC joint Findings on examination are compared to previous exam from 09/23/20 showing significant reduction in wrist inflammation as well as within the 4th extensor compartment. Prior irregularity in the lunate more suggestive of erosion. Continued synovial thickening of the 2nd and 3rd PIPJ. Overall this US shows improvement on previous exam and would recommend clinical correlation. note IM kenalog injection given 08/08/22 09/2022 R hip XR: unremarkable Assessment & Plan (01/30/2024 10:18 AM CDT): Remains on 20mg MTX weekly but has stopped AZA for unknown reason (possible issues with pharmacy). Off HCQ (concern for macular cyst from HCQ). Reports fairly stable joint symptoms - still with flare ups but they do not seem to be as severe. She has been flexing/extending the 1-3rd toes of her left foot with reduction in her prior pain. Minimal amount of synovitis on exam. Continue 20mg MTX PO weekly with 2mg FA daily. Will not restart AZA at this time but may in the future if required to better control her disease. Routine labs today. Return in 4 months, sooner if needed. Assessment & Plan (10/17/2023 12:19 PM CDT): Remains on 20mg MTX weekly and began 50mg AZA once daily at the end of August. Now off HCQ (concern for macular cyst from HCQ). Continues to have AM joint stiffness with slight increase in knee discomfort since stopping the Plaquenil. Left dorsal foot remains swollen and occasionally sore between the 1st and 2nd toes. Mild amount of synovitis on exam with fullness appreciated over dorsal aspect of left foot between 1-2nd MTP joints. Continue 20mg MTX PO weekly, 50mg AZA and 1mg FA daily. She would prefer to stay on lower dose of AZA for now to allow time to take effect. Will order left foot XR to evaluate the noted swelling - consider MRI if no significant OA. Routine labs today. Return in 2-3 months, sooner if needed. Assessment & Plan (06/01/2023 12:09 PM WELL SERVICES OPERATOR): On HCQ daily and 20mg MTX weekly with better control of her joint pain. Began to experience slight increase in joint discomfort 2 weeks ago but has been using Aleve with benefit. Has received additional prednisone doses this winter due to prolonged URI symptoms but bruising is better. Still with lateral hip pain. No synovitis or joint tenderness on exam. Continue 400mg HCQ daily and 20mg MTX weekly with 1mg FA daily. CBC/CMP today. Recommend she discuss getting trochanteric bursal injections through [facility] - if they cannot perform these then we can do it via US guidance. To return in 3-4 months, sooner if needed. Assessment & Plan (03/08/2023 10:39 AM WELL SERVICES OPERATOR): Continued HCQ daily and increased MTX to 20mg weekly after last visit. Received systemic kenalog injection last month due to moderate flare up and then a week before Thanks she developed a sinus infection and was prescribed a 50mg prednisone burst x 5 days as well as augmentin (did not take). Overall states she has little to no joint pain aside from her hip bursitis. Minimal amount of synovitis on exam today. Will have her continue current regimen - 400mg HCQ daily and 20mg MTX weekly with 1mg FA daily. Her joint improvement could be a combination of higher MTX dose and steroid use, will monitor. Routine labs today. Return in 3 months, sooner if needed. Assessment & Plan (01/04/2023 2:14 PM CDT): Continued 400mg HCQ daily and 15mg MTX weekly. Had a significant flare up that lasted over a week in late November - early December with hand swelling, knee throbbing and lateral hip pain. No benefit with Aleve and hydrocodone during that time with symptoms eventually abating. Typically her joint symptoms improve with use. The [facility] line therapist Dr. Cho she saw for her recurrent hematomas suspected a potential CTD contributing to her bruising, however she has had negative MARINA profiles to date. No evidence for scleroderma based on symptoms, no Raynauds and negative prior ANAs. She has also tried leflunomide in the past without benefit and is still experiencing flare-ups on dual DMARD therapy. Therefore will have her increase methotrexate to 20 mg weekly while continuing 400 mg HCQ and 2mg folic acid daily. To cancel her hand ultrasound next week as she is almost through this current flare up and instead call to schedule a hand ultrasound if she begins to develop another flare. To check AVISE panel today in order to recheck all serologies, including Scleroderma given her concern. Teturn in 4 weeks for repeat CBC/CMP due to increased MTX dose. Seen with Dr. Dalton. Assessment & Plan (11/02/2022 11:00 AM CDT): Restarted 400mg HCQ daily and continued 15mg PO MTX w/2mg FA daily after last visit. Received systemic Kenalog injection at last visit due to flare her with improvement and notes she had good control of her joint symptoms throughout September. Received another prednisone taper earlier this month after developing poison sumac on her left forearm which is now resolved. Joints remain stable and no synovitis on exam. She does feel better on current regimen and therefore will not change despite discoloration on her arms. She is to follow up with [facility] in December for further evaluation. Will check routine labs today. Return in 3-4 months, sooner if needed. Assessment & Plan (08/08/2022 1:01 PM CDT): CDAI 24, high Continued 15mg PO MTX weekly after last visit but continues to have pain affecting hands, hips and knees. Pain worsens with activity but is still present at rest. She has taken aleve sparingly (due to ecchymosis) yet continues to develop new areas of ecchymosis. Synovitis present on exam of the hands with several tender peripheral joints. R anterior groin pain with IR/ER of the hip. Patient was interested in restarting HCQ which was stopped due to ecchymosis concern - felt that her joint symptoms were better controlled. Will have her restart HCQ 400mg daily and continue 15mg MTX weekly with 2mg FA daily. Encouraged use of voltaren gel on knees. Will repeat a right hand/wrist US to evaluate for extent of inflammation as symptoms have an inflammatory and osteoarthritic component. Due to burden of disease, will administer kenalog 100 mg IM injection, in office, today. Patient is aware of SE of triamcinolone injection. Will also obtain a R hip XR given her anterior groin pain on exam. Return in 4 weeks, sooner if needed. Labs at that time. Seen with Dr. Dalton. Assessment & Plan (07/11/2022 12:09 PM CDT): CDAI 17, moderate Increased MTX to 15mg weekly with questionable benefit - received augmentin and medrol dose back after last visit due to sinusitis with GI upset and has only taken 3 doses of MTX. Also reports epistaxis yesterday which is atypical for her. Off leflunomide (affected bowel movements). Hands, knees and hips still cause discomfort. Still with synovitis of the bilateral hands on exam with several tender peripheral joints. Discussed option to switch MTX to injectable but at this time she would like to continue oral route and give it another month to see if she notes any benefit. Provided ITband stretches to see if this offers any reduction in her trochanteric pain. Would consider biologic therapy if no benefit at next visit as she has been on 3 DMARDs thus far. Routine labs at next visit. Return in 4 weeks, sooner if needed. Tylenol as needed. Assessment & Plan (06/13/2022 9:58 AM WELL SERVICES OPERATOR): CDAI 12, moderate Off leflunomide (diarrhea) and began 12.5mg MTX weekly with 2mg FA daily about 5 weeks ago. Did experience a flare up of joint pain affecting her hands, hips, knees and feet that has slowly subsided. Around the time of her flare up she also contracted Covid and is now recovering. Reports some return of GI symptoms but unsure if this is covid related or not. There is minimal amount of synovitis on exam with several tender peripheral joints. Will have her increase to 15mg MTX weekly and continue 2mg FA daily. If her diarrheal symptoms do not improve we discussed switching to subq MTX. Suggested use of voltaren gel on affected joints to avoid systemic NSAIDs as she is being evaluated by [facility] derm for her recurring ecchymosis. Will check routine labs today. Return in 4 weeks, sooner if needed. Assessment & Plan (03/14/2022 2:51 PM WELL SERVICES OPERATOR): Continued 20mg leflunomide once daily with gradual improvement in her frequent bowel movements which is tolerable. Joint pain has improved as well. Only 15min AM stiffness reported. Off all NSAIDs and takes Tylenol Arthritis when needed. Mild amount of synovitis on exam. Appears stable at this time. Will continue 20mg leflunomide once daily. Reviewed 01/2022 labs - routine labs at next visit. Return in 3 months. Sooner if needed. Seen with Dr. Dalton. Assessment & Plan (01/11/2022 10:17 AM CDT): CDAI 16, moderate Off HCQ and turmeric due to bruising vs purpura and began 20mg leflunomide once daily. Continues to have ecchymosis to bilateral UEs with minimal applied pressure Joint symptoms have returned almost to baseline since last visit but is unsure if this is due to leflunomide or to resolution of the flare. Of note she states the systemic Kenalog injection did not offer improvement this last time. With the initiation of leflunomide she has developed frequent small bowel movements, to 5-6 daily and just yesterday began to have diarrhea. Mild synovitis on exam with few tender peripheral joints. Will have her decrease to 10mg leflunomide daily due to frequent BMs. Also advised she watch for signs/sxs of an infection given her recent onset of diarrhea (unlikely related to medication as she has been on this for 1 month) - if no fever/chills/nausea I recommended she try some otc immodium for a few days to help with diarrheal symptoms. If she continues to have diarrhea and/or frequent BMs she will call the office and we will discuss change in therapy. She agreed with the plan. Routine labs today. Return in 2 months - may push this out to 3 months if GI symptoms alejandro. Assessment & Plan (12/15/2021 12:49 PM CDT): CDAI 28, high Stopped HCQ on 12/01 due to continued development of purpura on her arms. Is off Turmeric. Has not started Tylenol or Voltaren gel. Notes worsening joint pain/stiffness for past 2-3 weeks. Moderate amount of synovitis and joint tenderness on exam. Patient is in a flare due to cessation of her medications. Offered kenalog injection but she would prefer to avoid steroids as this could worsen the purpura on her arms. Discussed initiating treatment with leflunomide 20 mg po daily for control of her disease. Reviewed potential adverse effects including diarrhea, nausea, and hair loss. Warned to watch for development of any rash and to stop taking and call should this occur. She was amenable to the plan and was provided a handout for further evaluation. Return in [address] Dalton. Assessment & Plan (11/14/2021 11:57 AM CDT): CDAI 9, low On HCQ daily and doing well, noting only mild flare up in joint discomfort last month that has since resolved. Mild synovitis of the hands on exam with few tender joints. Appears stable at this time. If she begins to have worsening joint symptoms may need to add additional DMARD therapy. Continue 200mg HCQ BID daily. Routine labs today. Return in 4-6 months. Sooner if needed. Assessment & Plan (07/29/2021 8:30 PM CDT): CDAI 27, high On 200mg HCQ BID. Notes increase in joint pain x 1.5 weeks affecting mostly lower extremities. Increased stress 2/2 family dynamics. There is increased synovitis and peripheral joint tenderness on exam. +erythematous, blanching, pruritic rash to bilateral dorsal forearms and hands. Appears to be in a flare. Due to burden of disease, will administer kenalog 100 mg IM injection, in office, today. Patient made aware of SE of triamcinolone injection including but not limited to HTN, increase blood glucose, glaucoma and osteopenia with plant floor automation manager use of steroids. Steroid shot may also resolve rash - cannot get into dermatology office until 08/17. Continue 200mg HCQ BID. Return in 4-6 weeks to ensure joint symptoms return to baseline - she may call to cancel if she does not need this appointment given the 1.5hr roundtrip drive. Routine labs at next visit. Assessment & Plan (05/16/2021 12:59 PM WELL SERVICES OPERATOR): CDAI 9, low On 200mg HCQ BID. No joint complaints today. Broke 3 ribs along right ribcage a week after last visit when she fell off her horse but these have since healed. Continues to have palpitations and lightheadedness and trying to get Holter Monitor again. Minimal amount of synovitis on exam with few tender MCP/PIP and MTP joints. Eye exam in December 2020 was normal - continue 200mg HCQ BID. Suspect she has rosacea based on phone images - encouraged her to use her metonidazole cream on the rash to see if it helps and follow up with boat crew deck hand. Routine labs at next visit. Return in 6 months. Sooner if needed. Assessment & Plan (02/07/2021 12:54 PM CDT): CDAI 16, moderate On 200mg HCQ BID. Reports about 5 episodes of lightheadedness over the last several months and is being followed by PCP - negative EKG and soon to start a 30d Holter Monitor. Dizziness/vertigo are associated with HCQ but not lightheadedness, therefore unlikely to be due to the medication. Notes increase in joint discomfort over last 2 weeks with increase in amount of synovitis/joint tenderness on exam as compared to prior visit. Appears to be in a flare today. Offered a 100mg kenalog injection and reviewed the long-term side effects of recurrent use of steroids and she was amenable to the plan. Received the injection in office. Eye exam in December was normal - continue 200mg HCQ BID. Routine labs today. Return in 3 months. Sooner if needed. Assessment & Plan (11/15/2020 3:47 PM CDT): CDAI 4, low Began 200mg HCQ BID following last visit when she reported complete resolution of her joint complaints following a triamcinolone injection. She has been tolerating HCQ without SE and has not had another flare. Does note some returning fatigue symptoms after steroid shot. Minimal synovitis on exam. Continue 200mg HCQ BID and monitor symptoms. Return in 3 months. Sooner if needed. Will provide new referral for ophthalmology with specific OCT test (spectral domain) to establish baseline as she recently began hydroxychloroquine. Assessment & Plan (09/24/2020 1:06 PM CDT): Ms. Soria is a 59yo female with PMH of anxiety, hypothyroidism, elevated cholesterol, GERD and asthma who presents for further evaluation of her joint complaints. Recent serologies were negative for MARINA, RF and CCP and have been negative in prior work ups as well. Experiences pain in hips, knees, ankles, elbows and feet which occurs in cycles lasting anywhere from 1-6 weeks before resolving for a period of time. Notes stretching/activity improves pain/stiffness. Denies obvious joint swelling. Has taken/failed ibuprofen and mobic. Reports additional symptoms of recurrent aphthous ulcers, fatigue and plantar fasciitis. No contributory FH. Questionable fullness in several MCP and PIP joints of the hands with some ttp. Bilateral greater trochanters with moderate ttp as well as ankles and right achilles tendon. A right hand/wrist US showed severe synovial thickening of the dorsal wrist with grade 1 power doppler, mod-marked synovial thickening of the 2nd and 3rd PIP joint with grade 1 effusion of the 3rd PIP and effusion with grade 1 power doppler of the 4th extensor compartment. 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 Will trial with a systemic triamcinolone injection and based on her response may consider initiating HCQ. Appears to also have bilateral trochanteric bursitis. Return in [address] Dalton. *Due to burden of disease, will administer kenalog 100 mg IM injection, in office, today. Patient made aware of SE of triamcinolone injection including but not limited to HTN, increase blood glucose, glaucoma and osteopenia with plant floor automation manager use of steroids. Assessment & Plan (09/17/2020 7:50 AM CDT): Ms. Soria is a 59yo female with PMH of anxiety, hypothyroidism, elevated cholesterol, GERD and asthma who presents for further evaluation of her joint complaints. Recent serologies were negative for MARINA, RF and CCP and have been negative in prior work ups as well. Experiences pain in hips, knees, ankles, elbows and feet which occurs in cycles lasting anywhere from 1-6 weeks before resolving for a period of time. Notes stretching/activity improves pain/stiffness. Denies obvious joint swelling. Has taken/failed ibuprofen and mobic. Reports additional symptoms of recurrent aphthous ulcers, fatigue and plantar fasciitis. No contributory FH. Questionable fullness in several MCP and PIP joints of the hands with some ttp. Bilateral greater trochanters with moderate ttp. 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 Appears to also have bilateral trochanteric bursitis. Consider kenalog injections and will offer at C2 visit vs IT band stretches. Will obtain a right hand US and appropriate radiographs to further evaluation her symptoms. Return in [address] Dalton. 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 Gender Identity Not on file Sexual Orientation Not on file Last Filed Vital Signs Vital Sign Reading Time Taken Comments Blood Pressure 100/62 01/30/2024 9:36 AM CDT Pulse 74 01/30/2024 9:36 AM CDT Temperature 36.4 C (97.6 F) 10/07/2022 11:56 AM CDT Respiratory Rate 18 10/07/2022 11:56 AM CDT Oxygen Saturation 97% 01/30/2024 9:36 AM CDT Inhaled Oxygen Concentration - - Weight 71.2 kg (157 lb) 01/30/2024 9:36 AM CDT Height 167.6 cm (5' 6 ) 01/30/2024 9:36 AM CDT Body Mass Index 25.34 01/30/2024 9:36 AM CDT Plan of Treatment Not on file Insurance [facility] CHO[facility]PPO Address: [facility] [address] [place] [address] FOR[facility] OPEN ACCESS [facility]/PPO Address: [address] [address] [place] [address] [facility] CHOICE [facility]US [facility] H[facility]/PPO Address: [address] [address] [place] [address] Care Teams Retort Condenser Attendant Relationship Specialty Start Date End Date Sreekanth Landis MD [address] [place] [id number] PCP - General Internal Medicine 08/31/20 Gerardo Dalton MD [address] [place] [id number] Consulting Physician Rheumatology 08/31/20
--- OUTSIDE RECORDS SUMMARY | 2024-05-28 00:40 | XMS_ITS | Clinical Summary ---
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 01/2022: Neg Acute Hepatitis panel Assessment & Plan (03/08/2023 10:18 AM MANUFACTURING ENGINEERING PROFESSOR): Will monitor routine labs while on immunosuppressive [...] panel Assessment & Plan (06/13/2022 9:55 AM MANUFACTURING ENGINEERING PROFESSOR): Will monitor routine labs while on immunosuppressive medication. 01/2022: Neg Acute Hepatitis panel Purpura 11/14/2021 Assessment & Plan (11/02/2022 10:57 AM CDT): Saw Dr. Bravo 2 days after her last appointment with me and refer her to [facility]. Has appointment to see Dr Barker at the end of December. Encouraged her to call their office to see if they have her previous biopsy results/tissue samples. Continue to wear sunscreen and long sleeve shirts. Assessment & Plan (06/13/2022 9:59 AM MANUFACTURING ENGINEERING PROFESSOR): Now seeing [facility] dermatology for additional work up. Assessment & Plan (03/14/2022 3:04 PM MANUFACTURING ENGINEERING PROFESSOR): Seeing Dr. Bravo. Recent work up was [...] She was encouraged to follow up with knife sharpener. Assessment & Plan (12/15/2021 12:49 PM CDT): [...] have purpura present on bilateral forearms. Saw mercury cell cleaner and had a biopsy 1 week ago [...] needed. Assessment & Plan (06/01/2023 12:09 PM MANUFACTURING ENGINEERING PROFESSOR): On HCQ daily and 20mg MTX weekly [...] needed. Assessment & Plan (03/08/2023 10:39 AM MANUFACTURING ENGINEERING PROFESSOR): Continued HCQ daily and increased MTX to [...] her joint symptoms improve with use. The [facility] knife sharpener Dr. Cho she saw for her recurrent [...] arms. She is to follow up with [facility] Dermatology in December for further [...] needed. Assessment & Plan (06/13/2022 9:58 AM MANUFACTURING ENGINEERING PROFESSOR): CDAI 12, moderate Off leflunomide (diarrhea) and [...] needed. Assessment & Plan (03/14/2022 2:51 PM MANUFACTURING ENGINEERING PROFESSOR): Continued 20mg leflunomide once daily with gradual [...] increase blood glucose, glaucoma and osteopenia with terminal operations manager use of steroids. Steroid shot may also resolve rash - cannot get into dermatology office until 08/17. Continue 200mg HCQ BID. Return in 4-6 weeks to ensure joint symptoms return to baseline - she may call to cancel if she does not need this appointment given the 1.5hr roundtrip drive. Routine labs at next visit. Assessment & Plan (05/16/2021 12:59 PM MANUFACTURING ENGINEERING PROFESSOR): CDAI 9, low On 200mg HCQ BID. [...] if it helps and follow up with mercury cell cleaner. Routine labs at next visit. Return in [...] a 100mg kenalog injection and reviewed the senior living side effects of recurrent use of steroids [...] & Plan (09/24/2020 1:06 PM CDT): Ms. Soira is a 59yo female with PMH of [...] Return in [address] Daltno. *Due to burden of disease, will administer kenalog 100 mg IM injection, in office, today. Patient made aware of SE of triamcinolone injection including but not limited to HTN, increase blood glucose, glaucoma and osteopenia with terminal operations manager use of steroids. 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 Gender Identity Not on file Sexual Orientation Not on file Obstetrics History Last Filed Vital Signs Vital Sign Reading [...] 01/30/2024 9:36 AM CDT Plan of Treatment Health Maintenance Due Date Last Done Comments Cervical Cancer Screening 1960 Colon Cancer Screening-Colonoscopy 1960 Depression Screening 1960 Hepatitis C Screening 1960 Pneumococcal vaccine <65 (1 of 2 - PCV) 11/07/1965 DTaP/Tdap/Td Vaccine (1 - Tdap) 11/07/1970 Hepatitis B Screening 11/07/1977 Regular Well Visit/Exam 18-64 11/07/1977 Zoster Vaccine (1 of 2) 11/07/1978 Breast Cancer Screening-Mammogram 02/06/2023 022, 02/06/2022 Influenza Vaccine (#1) 2023 Insurance [facility] CHOICE PLUS CIG[employer] OPEN ACCESS [facility] CHOICE PLUS [facility] CHOICE PLUS Care Teams Fire Protection Specialist Relationship Specialty Start Date End Date Sreekanth Landis MD [address] [place] [id number] PCP - General Internal Medicine 08/31/20 Gerardo Dalton MD [facility] [place] [address] Consulting Physician Rheumatology 08/31/20
--- OUTSIDE RECORDS SUMMARY | 2024-05-28 00:40 | XMS_ITS | Encounter Summary ---
Author Organization [facility] Address [address] [place] [address] Care Team Providers Care Tag Stringer Name Role Phone Sreekanth Landis MD Primary Care Provider [phone] None, Provider Primary Care Provider Unavaila ble Encounter Details Date Type Department Care Team (Late st Contact Info) Description 03/30/2020 Prep for Procedure [facility] [id number] [place] [employer], [place] [id number] Felipe Mckeon MD [address] [place] [id number] Social History Tobacco Use Types Packs/Day Years Used Date Smoking Tobacco: Former Smokeless Tobacco: Never Alcohol Use Standard Drinks/Week Comments Not Currently 0 (1 standard drink = 0.6 oz pur e alcohol) Comments Unknown Sex and Gender Information Value Date Recorded Sex Assigned at Not on file Legal Sex Female 7:32 PM CDT Gender Identity Not on file Sexual Orientation Not on file COVID-19 Exposure Response Date Recorded In the last month, have you been in contact with someone who was confirmed or suspected to have Coronavirus / COVID-19? No / Unsure 03/26/2020 1:37 PM [facility] documented as of this encounter Plan of Treatment Not on file documented as of this encounter Results * PRE-SURGICAL/PRE-PROCEDURE CORONAVIRUS (COVID 19) (04/04/2020 9:47 AM [facility] TECH) CORONAVIRUS SARS COV 2 PCR (RESP) NOT DETECTED NOT DETECTED 04/05/2020 2:37 PM [facility]OL LAB TECH [facility] Comment: A Not Detected (negative) test result for this test means that SARS- CoV-2 RNA was not present in the specimen above the limit of detection. A negative result does not rule out the possibility of COVID-19 and should not be used as the sole basis for treatment or patient management decisions. If COVID-19 is still suspected, based on exposure history together with other clinical findings, re-testing should be considered in consultation with public health authorities. Laboratory test results should always be considered in the context of clinical observations and epidemiological data in making a final diagnosis and patient management decisions. Please review the Fact Sheets and FDA authorized labeling available for health care providers and patients using the following websites: https://www.[employer].Kriyari/home/Covid-19/HCP/QuestIVD/fact- sheet.html https://www.[employer]riyari/home/Covid-19/Patients/ QuestIVD/fact-sheet.html This test has been authorized by the FDA under an Emergency Use Authorization (EUA) for use by authorized laboratories. Due to the current public health emergency, [employer] is receiving a high volume of samples from a wide variety of swabs and media for COVID-19 testing. In order to serve patients during this public health crisis, samples from appropriate clinical sources are being tested. Negative test results derived from specimens received in non-commercially manufactured viral collection and transport media, or in media and sample collection kits not yet authorized by FDA for COVID-19 testing should be cautiously evaluated and the patient potentially subjected to extra precautions such as additional clinical monitoring, including collection of an additional specimen. Methodology: Nucleic Acid Amplification Test (NAAT) includes RT-PCR or TMA Additional information about COVID-19 can be found at the [employer] website: www.[employer].Kriyari/Covid19. [facility] performed at [facility] [address] [place] [address] Director: GAVIN FOREMAN DO,MPH FIRST TEST NO 04/04/2020 9:47 AM [facility] EMPLOYED IN HEALTHCARE NO 04/04/2020 9:47 AM [facility] SYMPTOMATIC DEFINED BY CDC NON-APPLICABLE 04/04/2020 9:54 AM [facility] Comment:CORRECTED ON 04/04 A T 0954: PREVIOUSLY REPORTED NO DATE OF SYMPTOM ONSET NON-APPLICABLE 04/04/2020 9:54 AM [facility] TECH [facility] HOSPITALIZATION STATUS NO 04/04/2020 9:47 AM [facility]OL LAB TECH [facility] PATIENT IN ICU NO 04/04/2020 9:47 AM [facility] LAB TECH [facility] RESIDENT OF CONGREGATE CARE NO 04/04/2020 9:47 AM [facility] CONTROL LAB TECH [facility] NO 04/04/2020 9:54 AM [facility] LAB TECH [facility] PATIENT'S RACE WHITE OR 04/04/2020 9:47 AM [facility] LAB TECH [facility] ETHNICITY NONHISPANIC 04/04/2020 9:47 AM [facility] CONTROL LAB TECH [facility] SOURCE (QST) NASOPHARYNGEAL SWAB 04/04/2020 9:47 AM [facility] TECH [facility] NASOPHARYNGEAL SWAB / Unknown 04/04/2020 9:47 AM [facility]AL[facility] CONTROL LAB TECH us Felipe Mckeon MD MICROBIOLOGY - GENERAL ORDERABLE S Edited Result - Final [facility] [address] [place] [address], [place] [address], documented in this encounter Visit Diagnoses Diagnosis Preop testing- Primary Preoperative examination, unspecified documented in this encounter Additional Health Concerns Infection Onset Date Last Indicated Resolved Time COVID-19 Rule Out 04/04/2020 04/04/2020 04/05/2020 2:37 PM [facility] TE[facility] documented as of this encounter Care Teams Tag Stringer Relationship Specialty Start Date End Date Sreekanth Landis MD [address] [place] [address] PCP - General INTERNAL MEDICINE 03/24/20 02/03/24 None, Provider, PCP - General UNKNOWN PHYSICIAN SPECIALTY 02/04/24 documented as of this encounter
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
--- OUTSIDE RECORDS SUMMARY | 2024-05-28 00:40 | XMS_ITS | Clinical Summary ---
Author Organization [facility] Address [address] [place] [address] Care Team Providers Care Family Preservation Caseworker Name Role Phone Akash Soares MD Primary Care Provider [phone] Source Comments [facility],non-owned Affiliates and Associated Physician Practices is amultiple site organization consisting of ambulatory clinics and hospital sitesin [place], [place], [place] and [place]. This disclosure is being madepursuant to the Care Everywhere program and may not contain all information available regarding this patient. Last updated 17.[facility] Allergies Active Allergy Reactions Criticality Noted Date Comments Diclofenac Epolamine Rash Medium 10/07/2022 Doxycycline Anaphylaxis,Nausea and/or Vomiting,Rash,Swellin g High 03/17/2014 Reaction: Rash, Swelling, Nausea, Molds & Smuts Unknown 10/07/2022 Medications * Be aware that medications may not be up to date on this document. Alwaysverify current medications with the patient. Medication Sig Dispensed Refills Start Date End Date Status ALPRAZolam (Xanax) 0.25 MG tablet alprazolam 0.25 mg tablet TAKE 1 TABLET BY MOUTH THREE TIMES DAILY NEEDED 08/31/2020 Active escitalopram (Lexapro) 20 MG tablet 09/13/2020 Active Lyllana 0.025 MG/24HR patch APPLY 1 PATCH TOPICALLY TO THE SKIN 2 TIMES A WEEK 12/23/2021 Active Ferrous Sulfate (Iron) 90 (18 Fe) MG Active omeprazole (PriLOSEC) 20 MG capsule Take 1 (one) capsule by mouth once daily Active rosuvastatin (Crestor) 10 MG tablet Take 1 (one) tablet by mouth at bedtime 01/25/2022 Active HYDROcodone-acetami nophen ([place]) 5-325 MG tablet TAKE 1 TABLET BY MOUTH EVERY 6 TO 8 HOURS NEEDED 11/30/2021 Active albuterol HFA (Proventil; Ventolin; Proair) 108 (90 Base) MCG/ACT inhaler Active Cyanocobalamin (VITAMIN B-12 PO) Active VITAMIN D PO Active methotrexate 2.5 MG tablet 05/09/2022 Active folic acid (Folvite) 1 MG tablet 05/09/2022 Active HYDROXYCHLOROQUINE SULFATE PO Take by mouth once daily Active tretinoin (Retin-A) 0.1 % creamIndications:Mi jamin tretinoin 0.1 % topical cream APPLY to forearms AT AT BEDTIME 45 g 5 01/02/2023 Active valACYclovir (Valtrex) 1 GM tablet Take 2 (two) tablets by mouth 2 times daily 04/24/2023 Active budesonide-formoter ol (Symbicort) 80-4.5 MCG/ACT inhaler INHALE 2 PUFFS BY MOUTH EVERY 12 HOURS 07/25/2023 Active hydroxychloroquine (Plaquenil) 200 MG tablet 08/02/2023 Active MEDICAL COLLECTIONS SPECIALIST Thyroid 30 MG tablet Take 1 (one) tablet by mouth every morning 06/14/2023 Active triamcinolone acetonide (Kenalog) 0.1 % cream APPLY TOPICALLY TO THE AFFECTED AREA 1 TO 2 TIMES DAILY NEEDED. AVOID FACE AND GROIN 10/07/2022 Active azelaic acid (Finacea) 15 % gel Apply to affected area on the face daily. 30 days supply. 50 g 5 08/07/2023 Active spironolactone (Aldactone) 100 MG tabletIndications:A cne vulgaris TAKE 1 TABLET BY MOUTH DAILY 30 tablet 4 02/11/2024 Active Trelegy Ellipta 100-62.5-25 MCG/ACT Inhale 1 (one) puff by mouth once daily 02/03/2024 Active nabumetone (Relafen) 750 MG tablet Take 1 (one) tablet by mouth 2 times daily with morning and evening meal 11/14/2023 Active Active Problems Problem Noted Date Diagnosed Date Acne vulgaris 04/25/2023 Overview (04/25/2023): 01/02/2023 - Chronic, well controlled with spironolactone - spironolactone (Aldactone) 50 MG tablet; Take 1 (one) tablet by mouth once daily 04/26/2023 Easy bruising 12/07/2022 Purpura 11/14/2021 Overview (05/23/2022): Last Assessment & Plan: Seeing Dr. Bravo. Recent work up was unrevealing as to why she is having purpura on her arms (continues to develop new areas of ecchymosis without trauma). Now off all NSAIDs and only takes Tylenol Arthritis prn. She is to follow up in April again. Seen with Dr. Dalton. Poor sleep 02/07/2021 Overview (05/23/2022): Last Assessment & Plan: Reported nightly snoring with poor quality sleep, moderate daytime fatigue and difficulty losing weight. Will send to Dr. Palafox for sleep study/TRUDI work up. 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 Last Assessment & Plan: Continued 20mg leflunomide once daily with gradual [...] Sooner if needed. Seen with Dr. Dalton. Anemia 03/29/2020 Overview (05/23/2022): Added automatically from request for surgery [id number] History of colon polyps 03/29/2020 Overview (05/23/2022): Added automatically from request for surgery [id number] Recurrent oral ulcers 05/05/2014 Arthralgia 03/17/2014 Myalgia and myositis 03/17/2014 Malaise 03/17/2014 Screening-pulmonary TB 03/17/2014 Tick bite 03/17/2014 Pain of foot 07/01/2013 Resolved Problems Problem Noted Date Diagnosed Date Resolved Date Constipation 03/17/2014 06/20/2022 Overview (05/23/2022): Added automatically from request for surgery [id number] Social History Tobacco Use Types Packs/Day Years [...] Mass Index 26.15 12/07/2022 2:04 PM CDT Plan of Treatment Health Maintenance Due Date Last Done Comments COLOGUARD (AGES 45-75) - COL ON CA SCREENING 1959 COLON MONITORING 1959 COLONOSCOPY - COLON CA SCREENING 1959 CT COLONOGRAPHY - COLON CA SCREENING 1959 Colorectal Cancer Screening 1959 FIT - COLON CA SCREENING 1959 FLEX SIG - COLON CA SCREENING 1959 PAP SMEAR 1959 HIV SCREENING 11/07/1974 DTAP/TDAP/TD VACCINES (1 - Tdap) 11/07/1978 PNEUMOCOCCAL VACCINE 50+ (1 of 1 - PCV) 11/07/2009 ZOSTER VACCINE (1 of 2) 11/07/2009 Respiratory Syncytial Virus (RSV) Vaccine Pt: or over 60 yrs (1 - Risk 60-74 years 1-dose series) 2019 COVID-19 VACCINE (4 - 2023-2 5 season) 2023 03/19/2021, 06/21/2020, 05/29/2020 INFLUENZA VACCINE (#1) 2023 03/19/2021 MAMMOGRAM 02/07/2024 02/06/2022, 02/06/2022 DEPRESSION SCREENING 04/09/2024 05/09/2022, 02/02/2022 HEPATITIS C SCREENING Completed 02/02/2022 , 03/17/2014 HEPATITIS B VACCINE Aged Out No longe r eligible based on patient's age to complete this topic HIB VACCINE Aged Out No longer eligi ble based on patient's age to complete this topic HPV VACCINE Aged Out No longer eligi ble based on patient's age to complete this topic MENINGOCOCCAL (Group B) VACCINE Aged Out No longer eligible b ased on patient's age to complete this topic MENINGOCOCCAL VACCINE Aged Out No oksana blaise eligible based on patient's age to complete this topic PNEUMOCOCCAL VACCINE Aged Out No long er eligible based on patient's age to complete this topic Procedures Procedure Name Priority Date/Time Associated Diagnosis Comments HEPATITIS SCREEN ACUTE ([facility]) Routine 02/02/2022 4:04 PM CDT Easy bruising Chronic inflammatory arthritis from Last 3 Months or Most Recently Relevant to Health Maintenance Results * HEPATITIS SCREEN ACUTE ([facility]) (02/02/2022 4:04 [...] Resulting Agency Comment Lab Testing performed at: [facility] [address] [place] [address] [id number] Janusz Bravo MD LAB - CHEMISTRY ALBA MARISCAL [facility] ACCOUNT BILL [address] [place] [address] from Last 3 Months or Most Recently Relevant to Health Maintenance Care Teams Family Preservation Caseworker Relationship Specialty Start Date End Date Akash Soares MD [address] [place] [phone] PCP - General Family Medicine 08/07/23
--- OUTSIDE RECORDS SUMMARY | 2024-05-28 00:40 | XMS_ITS | Referral Summary ---
Author Organization [facility] Address [address] [place] [address] Care Team Providers Care Devulcanizer Charger Name Role Phone Akash Soares MD Primary Care Provider Source Comments [facility],non-owned Affiliates and Associated Physician Practices is amultiple site organization consisting of ambulatory clinics and hospital sitesin [place], [place], [place] and [place]. This disclosure is being madepursuant to the Care Everywhere program and may not contain all information available regarding this patient. Last updated 17.[facility] Allergies Active Allergy Reactions Criticality Noted Date [...] mouth at bedtime 01/25/2022 Active HYDROcodone-acetami nophen ([place]) 5-325 MG tablet TAKE 1 TABLET BY [...] hydroxychloroquine (Plaquenil) 200 MG tablet 08/02/2023 Active NURSING ASSISTANT Thyroid 30 MG tablet Take 1 (one) [...] (05/23/2022): Added automatically from request for surgery [id number] History of colon polyps 03/29/2020 Overview (05/23/2022): Added automatically from request for surgery [id number] Recurrent oral ulcers 05/05/2014 Arthralgia 03/17/2014 Myalgia and myositis 03/17/2014 Malaise 03/17/2014 Screening-pulmonary TB 03/17/2014 Tick bite 03/17/2014 Pain of foot 07/01/2013 Resolved Problems Problem Noted Date Diagnosed Date Resolved Date Constipation 03/17/2014 06/20/2022 Overview (05/23/2022): Added automatically from request for surgery [id number] Social History Tobacco Use Types Packs/Day Years [...] 12/07/2022 2:04 PM CDT Plan of Treatment Not on file Procedures Procedure Name Priority Date/Time Associated Diagnosis [...] Resulting Agency Comment Lab Testing performed at: [address] [id number] Janusz Bravo MD LAB - CHEMISTRY ALBA [facility]ISC[facility] ACCOUNT BILL [address] [place] [address] from Last 3 Months or Most Recently Relevant to Health Maintenance Care Teams Devulcanizer Charger Relationship Specialty Start Date End Date Akash Soares MD [address] [place] [phone] PCP - General Family Medicine 08/07/23
[2024-05-28 10:57] VITALS: BP 114/81; PULSE 75; RESP 18; TEMP 36.3; O2SAT 99; BMI 23.9
[2024-05-28] MEDS: LACTATED RINGERS 1,000 ML 150 ML IV CONT (11:11)
--- NOTE | 2024-05-28 12:22 | PM.IMHP ---
H&P: HPI History of Present Illness Date/Time: 05/28/24 12:22 Chief Complaint: GERD-history of colon polyps. Narrative: The patient has chronic heartburn which has been controlled with omeprazole 20 mg q.d., however she has been requiring double dose to control her symptoms. She also complains of daily hiccups episodes which can last a few seconds but occur repeatedly in a day. Lastly, she has a history of colon polyps and she was referred for surveillance. Review of Systems Review of Systems: All systems reviewed & are unremarkable except as noted in HPI and below PMFSH Past Medical History Medical History Palindromic rheumatism Anxiety Hyperlipidemia Hypothyroidism (acquired) Asthma Surgical History Surgical History History of foot surgery bilateral plantar fasciitis and heel spur S/P cervical spinal fusion x2 H/O shoulder surgery Family History Family History Father Cancer Diabetes mellitus Mother Diabetes mellitus Heart disease Other Family history of cardiovascular disease Social History Social History Years smoked: 10 Smoking status: Current some day smoker Tobacco type: e-cigarettes/vaping Alcohol intake: current Substance use: never Do You Feel Safe in your Home?: Yes Lack of Transportation: No Lack of Food: Never True Current Housing: I Have Housing Concerned About Future Housing: No Difficulty Paying Gas/Electric Bills: No Difficulty Paying for Meds: No Currently Unemployed: No Education: Bachelor's Degree Difficulty w/ Childcare or Family Care: No Living arrangements: with family Occupation/Education: occupation Additional occupation/education comments: [employer] Spiritual care concerns: No Agree to blood products: Yes Meds Home Medications and Allergies Home Medications ?Medication ?Instructions ?Recorded ?Confirmed ?Type cholecalciferol (vitamin D3) 50 50 mcg PO DAILY 06/15/22 05/28/24 History mcg (2,000 unit) capsule ferrous sulfate 325 mg (65 mg 325 mg PO DAILY 06/15/22 05/28/24 History iron) tablet folic acid 400 mcg tablet 0.4 mg PO DAILY 06/15/22 05/28/24 History mecobalamin (vitamin B12) 1,000 1,000 mcg PO DAILY 06/15/22 05/28/24 History mcg chewable tablet spironolactone 50 mg tablet 50 mg PO DAILY 06/15/22 05/28/24 History levothyroxine 75 mcg tablet 75 mcg PO DAILY #90 tabs 12/22/22 05/15/24 Rx alprazolam 0.5 mg tablet (Xanax) 0.5 mg PO DAILY 04/24/23 05/28/24 History valacyclovir 1 gram tablet 2,000 mg (2 x 1 gram) PO BID #4 04/24/23 05/15/24 Rx tabs rosuvastatin 10 mg tablet See Rx Instructions .Route 01/14/24 05/28/24 Rx .COMPLEX #90 tabs escitalopram oxalate 20 mg tablet 20 mg PO DAILY #90 tabs 01/28/24 05/28/24 Rx (Lexapro) albuterol sulfate 90 mcg/actuation 1 inh inhalation Q4H #8.5 grams 04/15/24 05/15/24 Rx aerosol inhaler (Ventolin HFA) valacyclovir 500 mg tablet See Rx Instructions .Route 04/15/24 05/28/24 Rx .COMPLEX #90 tabs azithromycin 250 mg tablet See Rx Instructions PO .COMPLEX #6 04/21/24 05/15/24 Rx tabs omeprazole 40 mg capsule,delayed 40 mg PO DAILY #90 caps 05/01/24 05/28/24 Rx release fluticasone fur. 100 mcg-umeclid 1 inh inhalation DAILY #60 ea 05/02/24 05/28/24 Rx 62.5 mcg-vilant 25 mcg inhalat.powder (Trelegy Ellipta) hydrocodone 5 mg-acetaminophen 325 tablet 05/15/24 History mg tablet methotrexate sodium 2.5 mg tablet mg 05/15/24 History Allergies Allergy/AdvReac Type Severity Reaction Status Date / Time doxycycline AdvReac Severe Redness of Uncoded 05/28/24 10:56 Skin Vital Signs Vital Signs - 24 hr 05/28/24 10:57 Temperature 97.4 F L Pulse Rate 75 Respiratory Rate 18 Blood Pressure 114/81 Pulse Oximetry 99 Oxygen Delivery Room Air Exam Const: General: cooperative and healthy appearing Resp: Effort & Inspection: normal respiratory effort and able to speak in complete sentences Auscultation: clear to auscultation bilaterally Cardio: Rate: regular rate Rhythm: regular rhythm GI: Inspection: normal to inspection GI Palp: No No hepatosplenomegaly present Auscultation: normal bowel sounds Rectal Exam: deferred Skin: General skin exam: normal color Psych: Appearance: grossly normal Mental Status: mental status grossly normal Assessment and Plan Assessment and plan (1) Chronic GERD: Code(s): K21.9 - Gastro-esophageal reflux disease without esophagitis Status: Acute Assessment and Plan: The patient is deemed a good candidate for the procedures. Consent signed. Will proceed. (2) Hx of colonic polyp: Code(s): Z86.0100 - Personal history of colon polyps, unspecified Status: Acute
--- NOTE | 2024-05-28 12:29 | WPDANESEPPF ---
Anes - Initial Pre Proc Eval Procedure: Operation Date: 05/28/24 12:30 Proposed Procedures p Esophagogastroduodenoscopy & Colonoscopy - Bruce Mills MD Date/Time: 05/28/24 12:29 Surgeon: Bruce Mills MD Pre Op Diagnosis: Personal hx of colon polyps Patient Data Age: 63 Gender: F Height: 1.68 m Weight: 67.2 kg Last Vital Signs Temp 36.3 C L 05/28/24 10:57 Pulse 75 05/28/24 10:57 Resp 18 05/28/24 10:57 BP 114/81 05/28/24 10:57 Pulse Ox 99 05/28/24 10:57 O2 Del Method Room Air 05/28/24 10:57 Allergies Allergy/AdvReac Type Severity Reaction Status Date / Time doxycycline AdvReac Severe Redness of Uncoded 05/28/24 10:56 Skin Home Medications ?Medication ?Instructions ?Recorded ?Confirmed ?Type cholecalciferol (vitamin D3) 50 50 mcg PO DAILY 06/15/22 05/28/24 History mcg (2,000 unit) capsule ferrous sulfate 325 mg (65 mg 325 mg PO DAILY 06/15/22 05/28/24 History iron) tablet folic acid 400 mcg tablet 0.4 mg PO DAILY 06/15/22 05/28/24 History mecobalamin (vitamin B12) 1,000 1,000 mcg PO DAILY 06/15/22 05/28/24 History mcg chewable tablet spironolactone 50 mg tablet 50 mg PO DAILY 06/15/22 05/28/24 History levothyroxine 75 mcg tablet 75 mcg PO DAILY #90 tabs 12/22/22 05/15/24 Rx alprazolam 0.5 mg tablet (Xanax) 0.5 mg PO DAILY 04/24/23 05/28/24 History valacyclovir 1 gram tablet 2,000 mg (2 x 1 gram) PO BID #4 04/24/23 05/15/24 Rx tabs rosuvastatin 10 mg tablet See Rx Instructions .Route 01/14/24 05/28/24 Rx .COMPLEX #90 tabs escitalopram oxalate 20 mg tablet 20 mg PO DAILY #90 tabs 01/28/24 05/28/24 Rx (Lexapro) albuterol sulfate 90 mcg/actuation 1 inh inhalation Q4H #8.5 grams 04/15/24 05/15/24 Rx aerosol inhaler (Ventolin HFA) valacyclovir 500 mg tablet See Rx Instructions .Route 04/15/24 05/28/24 Rx .COMPLEX #90 tabs azithromycin 250 mg tablet See Rx Instructions PO .COMPLEX #6 04/21/24 05/15/24 Rx tabs omeprazole 40 mg capsule,delayed 40 mg PO DAILY #90 caps 05/01/24 05/28/24 Rx release fluticasone fur. 100 mcg-umeclid 1 inh inhalation DAILY #60 ea 05/02/24 05/28/24 Rx 62.5 mcg-vilant 25 mcg inhalat.powder (Trelegy Ellipta) hydrocodone 5 mg-acetaminophen 325 tablet 05/15/24 History mg tablet methotrexate sodium 2.5 mg tablet mg 05/15/24 History Patient hx anesthesia problems: none Family hx anesthesia problems: none Results Review: All pre-operative results and documents have been reviewed as part of the pre-operative evaluation. [facility] Past Medical History Medical History Palindromic rheumatism Anxiety Hyperlipidemia Hypothyroidism (acquired) Asthma Surgical History Surgical History History of foot surgery bilateral plantar fasciitis and heel spur S/P cervical spinal fusion x2 H/O shoulder surgery Family History Family History Father Cancer Diabetes mellitus Mother Diabetes mellitus Heart disease Other Family history of cardiovascular disease Social History Social History Years smoked: 10 Smoking status: Current some day smoker Tobacco type: e-cigarettes/vaping Alcohol intake: current Substance use: never Do You Feel Safe in your Home?: Yes Lack of Transportation: No Lack of Food: Never True Current Housing: I Have Housing Concerned About Future Housing: No Difficulty Paying Gas/Electric Bills: No Difficulty Paying for Meds: No Currently Unemployed: No Education: Bachelor's Degree Difficulty w/ Childcare or Family Care: No Living arrangements: with family Occupation/Education: occupation Additional occupation/education comments: [employer] Spiritual care concerns: No Agree to blood products: Yes Mary Kays - [place] Final PreProcedure Day of Procedure 05/28/24 12:29 Patient weight: normal Heart: regular rate and rhythm Lungs: clear to auscultation and normal air movement Airway: Mallampati scale class II and special considerations poor extension Neurological: alert and oriented Last oral intake: >/= 8 hours Emergent: no Anesthetic plan: proceed Anesthesia type and monitoring: general GIVS and standard monitoring Results Review: All pre-operative results and documents have been reviewed as part of the pre-operative evaluation. Informed Consent: The patient's anesthetic plan and its attendant risks and benefits were discussed with the patient/family/POA. Questions were solicited and answers provided to the satisfaction of the patient/family/POA.
[2024-05-28] MEDS: BENZOCAINE (*SP) 60 ML SPRAY CAN (HURRICAINE) 1 SPRAY MUCOUS MEM (12:33)
--- NOTE | 2024-05-28 12:47 | SUR.OPER ---
EGD ended 1241 colonoscopy started 124
[2024-05-28 13:57] VITALS: BP 129/75; PULSE 82; RESP 23; O2SAT 96
[2024-05-28 14:07] VITALS: BP 118/86; PULSE 72; RESP 23; O2SAT 100
[2024-05-28 14:17] VITALS: BP 118/66; PULSE 71; RESP 24; O2SAT 100
== END 2024-05-28 14:37 | disposition home or self-care (01) ==
PROVIDERS: PCP Nurse Practitioner Family; Referring Provider Nurse Practitioner; Visit Provider Internal Medicine Gastroenterology
PROC: 0DJ08ZZ Inspection of Upper Intestinal Tract, Via Natural or Artificial Opening Endoscopic (ICD-10-PCS; CPT 45378; principal; 2024-05-28 12:30)
DX: Z12.11 Encounter for screening for malignant neoplasm of colon (principal); D12.2 Benign neoplasm of ascending colon; K63.5 Polyp of colon; K31.89 Other diseases of stomach and duodenum; K21.9 Gastro-esophageal reflux disease without esophagitis; E78.5 Hyperlipidemia, unspecified; E03.9 Hypothyroidism, unspecified; J45.909 Unspecified asthma, uncomplicated; F41.9 Anxiety disorder, unspecified; M12.30 Palindromic rheumatism, unspecified site; F17.290 Nicotine dependence, other tobacco product, uncomplicated; Z79.51 Long term (current) use of inhaled steroids; Z79.891 Long term (current) use of opiate analgesic; Z98.890 Other specified postprocedural states; Z98.1 Arthrodesis status; Z86.0100 Personal history of colon polyps, unspecified; Z80.9 Family history of malignant neoplasm, unspecified; Z82.49 Family history of ischemic heart disease and other diseases of the circulatory system
CPT/HCPCS: 43239; 45390; 88305; J2704; J7120

== ENCOUNTER 2024-11-26 13:15 | Outpatient (CLI) | payer OTHER, SELFPAY ==
--- NOTE | ~2024-11-26 | XR_ITS ---
EXAM/ PROCEDURE: XR foot LT 2V - 11/26/2024 13:22 CDT HISTORY: 64 years old Female with Undifferentiated inflammatory arthritis COMPARISON: None available TECHNIQUE: Three view(s) FINDINGS/ IMPRESSION: There are no fractures or dislocations.Joint space narrowing, subchondral sclerosis, subchondral cyst formation and osteophyte formation, compatible with mild osteoarthritis, greatest at the first metatarsophalangeal joint. Diffuse osteopenia. Reviewed, dictated and finalized at location A.
== END 2024-11-26 13:16 | disposition home or self-care (01) ==
LOC: MICIMG 13:17
PROVIDERS: PCP Nurse Practitioner Family; Visit Provider Physician Assistant Medical
DX: M19.90 Unspecified osteoarthritis, unspecified site (principal)
CPT/HCPCS: 73620

== ENCOUNTER 2025-01-18 13:41 | Emergency (ER) | payer OTHER, SELFPAY ==
--- NOTE | ~2025-01-18 | XR_ITS ---
EXAMINATION: XR chest 2V, 01/18/2025 14:18 CDT HISTORY: Cough COMPARISON: No comparisons available. Technique: 2 views obtained. Findings: The lungs are clear, no effusion. No pneumothorax. Heart is normal size. Mediastinal and hilar contours are within normal limits. Bony thorax no acute abnormality. Impression: No acute cardiopulmonary abnormality. Reviewed, dictated and finalized at location P. Impression: No acute cardiopulmonary abnormality.
[2025-01-18 13:55] VITALS: BP 98/75; PULSE 86; RESP 20; TEMP 36.4; O2SAT 98
--- NOTE | 2025-01-18 13:55 | ED.URI ---
HPI - URI/Sore Throat General Chief Complaint: Upper Respiratory Infection Stated Complaint: Cough Time Seen by Provider: 01/18/25 14:10 Source: patient and RN notes reviewed Mode of arrival: ambulatory Limitations: no limitations History of Present Illness HPI Narrative: 64-year-old female presents with concern for 3 week history of productive cough with thick sputum, sore throat, nasal congestion and head congestion. Reports body aches. Reports she has history of asthma and she has not needed her rescue inhaler. She has taken [id number] medications without relief. MD elicited complaint: cough and nasal congestion Related Data Home Medications ?Medication ?Instructions ?Recorded ?Confirmed ?Last Taken ?Type cholecalciferol (vitamin D3) 50 50 mcg PO DAILY 06/15/22 10/14/24 05/27/24 History mcg (2,000 unit) capsule ferrous sulfate 325 mg (65 mg 325 mg PO DAILY 06/15/22 10/14/24 05/27/24 History iron) tablet folic acid 400 mcg tablet 0.4 mg PO DAILY 06/15/22 10/14/24 05/27/24 History mecobalamin (vitamin B12) 1,000 1,000 mcg PO DAILY 06/15/22 10/14/24 05/27/24 History mcg chewable tablet spironolactone 50 mg tablet 50 mg PO DAILY 06/15/22 10/14/24 05/27/24 History alprazolam 0.5 mg tablet (Xanax) 0.5 mg PO DAILY 04/24/23 10/14/24 05/27/24 History hydrocodone 5 mg-acetaminophen 325 tablet 05/15/24 10/14/24 05/13/24 History mg tablet methotrexate sodium 2.5 mg tablet 10 mg PO WEEKLY 10/14/24 10/14/24 Unknown History folic acid 1 mg tablet 01/18/25 Unknown History progesterone micronized 200 mg mg 01/18/25 Unknown History capsule thyroid (pork) 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 Denies chills, sweats, or fever. EYES: Denies visual changes, redness, or discharge. ENT: Reports rhinorrhea, congestion, sinus pain, and sore throat. CARDIOVASCULAR: Denies chest pain, palpitations, or edema. RESPIRATORY: Reports cough. Denies dyspnea. GASTROINTESTINAL: Denies abdominal pain, nausea, vomiting, diarrhea SKIN: Denies rash or itching. MUSCULOSKELETAL: Reports myalgia. NEUROLOGIC: Denies headache. All systems reviewed & are unremarkable except as noted in HPI and below PMFSH Past Medical History Medical History ) Palindromic rheumatism Anxiety Hyperlipidemia Hypothyroidism (acquired) Asthma Surgical History Surgical History ) History of foot surgery bilateral plantar fasciitis and heel spur S/P cervical spinal fusion x2 H/O shoulder surgery Family History Family History ) Father Cancer Diabetes mellitus Mother Diabetes mellitus Heart disease Other Family history of cardiovascular disease Social History Social History ) Smoking packs per day: 1 Smoking cigarettes per day: 20.0 Years smoked: 10 Smoking pack-years: 10.00 Smoking status: Former smoker Tobacco type: e-cigarettes/vaping Alcohol intake: current Substance use: never Substance use type: does not use Do You Feel Safe in your Home?: Yes Lack of Transportation: No Lack of Food: Never True Current Housing: I Have Housing Concerned About Future Housing: No Difficulty Paying Gas/Electric Bills: No Difficulty Paying for Meds: No Currently Unemployed: No Education: Bachelor's Degree Difficulty w/ Childcare or Family Care: No Living arrangements: with family Occupation/Education: occupation Additional occupation/education comments: [employer] Spiritual care concerns: No Agree to blood products: Yes Comments At time of signature, agree with nursing past medical, surgical, social and family history. There is no relevant family history pertinent to the presenting complaint Exam Narrative: GENERAL: Nontoxic-appearing, well-nourished, and in no acute distress. HEAD: Normocephalic EYES: PERRLA, conjunctivae clear ENT: Nares clear, turbinates edematous and erythematous. Mucous membranes moist. TM pearly vuong with dull light reflex bilaterally; no tragal tenderness. Oropharynx not erythematous without lesions. Tonsils not enlarged and without exudate, no drooling, no hoarseness, no trismus, uvula midline. NECK: Supple. No lymphadenopathy CHEST: Clear to auscultation, breath sounds equal. No wheezing, rhonchi, rales, or stridor. No respiratory distress, speaks in full sentences. Cough noted HEART: Regular rate and rhythm. No murmur heard. SKIN: Warm, dry, no rash. NEURO: Alert and oriented x3. PSYCH: Normal mood and affect Course Course Emergency Course: Patient is aware of diagnosis, understands and agrees to treatment plan. Anticipatory guidance given. Patient agrees to follow-up as directed and is aware of reasons to seek care at the emergency department. Portions of this record may have been created with voice recognition software Level of Care: Express Care Visit Vital Signs Vital signs: Reviewed. MDM - URI/Sore Throat MDM Narrative Medical decision making narrative: Differential diagnosis considered: [place] virus, strep pharyngitis, allergic rhinitis, upper respiratory tract infection, sinusitis, rhinosinusitis, nasopharyngitis. viral pharyngitis, otitis media, otitis externa, pneumonia, bronchitis, viral cough syndrome, viral syndrome, and influenza. Exam findings show no acute concerns or changes; patient is non-toxic appearing and is in no distress. Patient is appropriate for outpatient treatment and follow-up. Lab Data Attestation: I reviewed the patient's lab results. Imaging Data My impression: Images reviewed, interpreted by radiologist, agree, see report. Radiologist's impression: EXAMINATION: XR chest 2V, 01/18/2025 14:18 CDT HISTORY: Cough COMPARISON: No comparisons available. Technique: 2 views obtained. Findings: The lungs are clear, no effusion. No pneumothorax. Heart is normal size. Mediastinal and hilar contours are within normal limits. Bony thorax no acute abnormality. Impression: No acute cardiopulmonary abnormality. Critical Care Time Critical Care Time Critical Care Time: No Discharge Plan Discharge Clinical Impression: Sinobronchitis Patient Disposition: Home Condition: Stable Instructions: Sinusitis (ED), Acute Bronchitis (ED) Additional Instructions: Your x-ray does not show pneumonia Take medication as prescribed Recommend antihistamine such as Benadryl at night time and Zyrtec or María during the day Use inhaler as needed for cough, wheezing, shortness of breath or chest tightness. Also, recommend symptomatic treatment includes: rest, fluids, and increase humidity of the air at home. Recommend Acetaminophen as directed on the bottle to reduce fever, pain, headache. Avoid smoking/second-hand smoke. Please schedule a follow-up visit with your personal physician for further evaluation and treatment within 3-5days. If your symptoms persist, change or worsen significantly before you can contact your personal physician then please, without delay, go to the emergency department for further evaluation. Patient Language: Danish Prescriptions: New levofloxacin 750 mg tablet 750 mg PO DAILY 7 Days Qty: 7 0RF prednisone 20 mg tablet 40 mg PO DAILY 5 Days Qty: 10 0RF No Action progesterone micronized 200 mg capsule folic acid 1 mg tablet thyroid (pork) [SANDING MACHINE BUFFER Thyroid] 30 mg tablet albuterol sulfate [Ventolin HFA] 90 mcg/actuation HFA aerosol inhaler 1 inh inhalation Q4H Qty: 8.5 0RF valacyclovir 500 mg tablet See Rx Instructions .ROUTE .COMPLEX Qty: 90 2RF Dose Instruction: TAKE 1 TABLET BY MOUTH DAILY Rx Instructions: TAKE 1 TABLET BY MOUTH DAILY spironolactone 50 mg tablet 50 mg PO DAILY folic acid 400 mcg tablet 0.4 mg PO DAILY mecobalamin (vitamin B12) 1,000 mcg tablet,chewable 1,000 mcg PO DAILY ferrous sulfate 325 mg (65 mg iron) tablet 325 mg PO DAILY cholecalciferol (vitamin D3) 50 mcg (2,000 unit) capsule 50 mcg PO DAILY methotrexate sodium 2.5 mg tablet 10 mg PO WEEKLY hydrocodone-acetaminophen 5-325 mg tablet alprazolam [Xanax] 0.5 mg tablet 0.5 mg PO DAILY escitalopram oxalate [Lexapro] 20 mg tablet 20 mg PO DAILY Qty: 90 3RF omeprazole 40 mg capsule,delayed release(DR/EC) See Rx Instructions .ROUTE .COMPLEX Qty: 30 3RF Dose Instruction: TAKE 1 CAPSULE BY MOUTH DAILY Rx Instructions: TAKE 1 CAPSULE BY MOUTH DAILY Trelegy Ellipta 100-62.5-25 mcg blister with device 1 inh inhalation DAILY Qty: 60 0RF rosuvastatin 10 mg tablet See Rx Instructions .ROUTE .COMPLEX Qty: 90 1RF Dose Instruction: TAKE 1 TABLET BY MOUTH DAILY Rx Instructions: TAKE 1 TABLET BY MOUTH DAILY Follow-up/Referrals: PHYSICIAN,HOGSHEAD HOOPER [Primary Care Provider, Internal Medicine]
== END 2025-01-18 14:46 | disposition home or self-care (01) ==
PROVIDERS: Emergency Provider Nurse Practitioner
DX: J32.9 Chronic sinusitis, unspecified (principal); J40 Bronchitis, not specified as acute or chronic; E03.9 Hypothyroidism, unspecified; E78.5 Hyperlipidemia, unspecified; J45.909 Unspecified asthma, uncomplicated; F41.9 Anxiety disorder, unspecified; Z87.891 Personal history of nicotine dependence
CPT/HCPCS: 71046; 99213; G0463